=== PATIENT | female | born 1950 | race Caucasian/White ===

== ENCOUNTER 2021-02-13 08:12 | Outpatient (CLI) | payer MEDICARE, SELFPAY | END 2021-02-13 08:13 | disposition home or self-care (01) | LOC: ANHCOVIDVC 08:12 | PROVIDERS: PCP Emergency Medicine | DX: Z23 Encounter for immunization (principal) | CPT/HCPCS: 0001A; 91300 ==

== ENCOUNTER 2021-03-06 08:16 | Outpatient (CLI) | payer MEDICARE, SELFPAY | END 2021-03-06 08:17 | disposition home or self-care (01) | LOC: ANHCOVIDVC 08:17 | PROVIDERS: PCP Emergency Medicine | DX: Z23 Encounter for immunization (principal) | CPT/HCPCS: 0002A; 91300 ==

== ENCOUNTER 2021-05-13 15:15 | Outpatient (CLI) | payer MEDICARE, SELFPAY ==
--- NOTE | ~2021-05-13 | XR_ITS ---
XR chest 2V DATE: 05/13/2021 15:34 INDICATION: Shortness of breath, cough, wheezing. Hypertension. Smoker. TECHNIQUE: PA and lateral views COMPARISON: 12/30/2015 PA and lateral chest FINDINGS: Heart size is normal. Is aortic arch calcification. No hilar or mediastinal enlargement. No pulmonary infiltrate or consolidation, pleural effusion or pulmonary vascular congestion or pneumo thorax. Diffuse osteopenia. IMPRESSION: No active cardiopulmonary disease Reviewed, dictated and finalized at location B.
== END 2021-05-13 15:16 | disposition home or self-care (01) ==
LOC: ANHIMG 15:17
PROVIDERS: PCP Family Medicine; Visit Provider Family Medicine
DX: R06.2 Wheezing (principal)
CPT/HCPCS: 71046

== ENCOUNTER 2021-10-20 11:24 | Observation (INO) | payer MEDICARE, SELFPAY ==
[2021-10-20] VITALS (15 sets, daily range): BP systolic 128–167; BP diastolic 51–100; PULSE 84–117; RESP 16–27; TEMP 36.1–36.8; O2SAT 96–98; BMI 35.8
--- NOTE | 2021-10-20 | ECHO_ITS ---
Patient Info Name: Annette Merchant Age: 71 years : 1950 Gender: Female Ht: 62 in Wt: 182 lbs BSA: 1.94 m2 HR: 94 bpm BP: 128 / 100 mmHg Heart Rhythm: Sinus Rhythm Technical Quality: Fair Exam Date: 10/20/2021 4:59 PM Exam Location: [facility] Patient Status: Outpatient Admit Date: 10/20/2021 Staff Ordering Physician: Nidia Galvez NP Cms Expert: Emily Delatorre RDCS Attending Provider: Guerda Esteves MD Referring Physician: Leonor BLOOM; Exam Type: CA echo doppler color flow Study Info Indications - sob Complete two-dimensional, color flow and Doppler transthoracic echocardiogram is performed. Summary 1. Complete two-dimensional, color flow and Doppler transthoracic echocardiogram is performed. 2. Normal left ventricular size and thickness with good contractility of all segments and no segmental wall motion abnormalities. Ejection fraction 66%. Grade 2 diastolic dysfunction is present. 3. Left atrial chamber dimension is moderately enlarged. 4. The mitral valve has thickened leaflets and posterior prolapse. There is mild mitral regurgitation present. 5. Mild pulmonary hypertension, estimated pulmonary arterial systolic pressure is 38 mmHg. 6. Normal sinus rhythm. Left Ventricle Left ventricular chamber dimension is normal. Left ventricular systolic function is normal, estimated at 65-70%. There is no increased left ventricular wall thickness. Left ventricular septal wall motion is normal. The left ventricular diastolic function is grade II diastolic dysfunction. Right Ventricle Right ventricular chamber dimension is normal. Right ventricular systolic function is normal. Left Atria Left atrial chamber dimension is moderately enlarged. Right Atria Right atrial chamber dimension is normal. Aortic Valve The aortic valve is trileaflet. There is no aortic valve sclerosis. There is no aortic valve stenosis. There is no aortic valve regurgitation. Pulmonic Valve The pulmonic valve is normal. There is no pulmonic valve stenosis. There is no pulmonic regurgitation. Mitral Valve The mitral valve has thickened leaflets and posterior prolapse. There is mild mitral regurgitation present. There is no mitral valve stenosis. There is mild mitral valve regurgitation. Tricuspid Valve The tricuspid valve leaflets are normal. There is no significant tricuspid valve stenosis. There is trace tricuspid valve regurgitation. Mild pulmonary hypertension, estimated pulmonary arterial systolic pressure is 38 mmHg. Pericardium/Pleural The pericardium appears normal. There is no pericardial effusion. Inferior Vena Cava Normal inferior vena cava with >50% collapse upon inspiration consistent with Empty right atrial pressure, 10 mmHg. Aorta The aortic root size at the sinus of Valsalva is normal. The prox ascending aorta size is not well visualized. The aorta arch size is not well visualized measuring Empty. The abdominal aorta size is not well visualized. Left Ventricular Outflow Tract Name Value Normal LVOT 2D LVOT Diameter 2.0 cm LVOT Doppler LVOT P
--- NOTE | ~2021-10-20 | CT_ITS ---
EXAMINATION: CTA chest PE protocol DATE: 10/20/2021 16:00 INDICATION: Shortness of breath TECHNIQUE: Computed tomography (CT) pulmonary angiogram of the chest was performed with 100 mL Omnipa que-350 intravenous contrast. Additional 3D reconstructions utilizing coronal maximum intensity proje ction (MIP) were performed. Automated exposure control and iterative reconstruction technique were em ployed. The dose-length product was 900.60 mGy-cm. COMPARISON: None FINDINGS: Good contrast opacification of the pulmonary arteries. There is mild streak artifact from dense contr ast in the superior vena cava and right atrium. Moderate scattered respiratory motion artifact. No ev ident pulmonary embolism although sensitivity is significantly decreased in the smaller subsegmental pulmonary arteries. Mild emphysema. A couple small regions of consolidation in the medial aspect of t he posterior segment of the left upper lobe suspicious for pneumonia. Additional more bandlike consol idation at the lingula and would favor atelectasis over pneumonia. No pulmonary edema, pleural effusi on or pneumothorax. Heart size is normal. No pericardial effusion. Atherosclerotic calcification lily g the normal caliber thoracic aorta with no dissection. No pathologically enlarged thoracic lymphaden opathy. Small sliding-type hiatal hernia. Bilateral renal cysts, the largest on the right measuring 2 .8 cm in maximal diameter. IMPRESSION: 1. No pulmonary embolism. Evaluation significantly limited in the smaller subsegmental pulmonary ron devin due to primarily to moderate respiratory motion artifact. 2. Couple small regions of consolidation in the posterior segment of the left upper lobe suspicious f or pneumonia. Recommend 3 month follow-up low-dose noncontrast chest CT to document resolution as dif ferential would include less likely malignancy. 3. Mild emphysema. Reviewed, dictated and finalized at location H. [employer] [employer] IMPRESSION: 1. No pulmonary embolism. Evaluation significantly limited in the smaller subse gmental pulmonary arteries due to primarily to moderate respiratory motion keiry fact. 2. Couple small regions of consolidation in the posterior segment of the left u pper lobe suspicious for pneumonia. Recommend 3 month follow-up low-dose noncon trast chest CT to document resolution as differential would include less likely malignancy. 3. Mild emphysema.
[2021-10-20 12:09] LABS: Basophils Absolute Auto 0.1 K/mm3 (0.0-0.1); Basophils Percent Auto 0.4 % (0.2-1.2); Eosinophils Percent Auto 0.2 % (0-4.4); Hematocrit 24.4 % (37.0-47.0); Hemoglobin 7.3 g/dL (12.0-15.0); Immature Granulocyte Absolute 0.14 K/mm3 (0.00-0.031); Immature Granulocyte Percent A 0.9 % (0-0.5); Lymphocytes Absolute Auto 1.26 K/mm3 (0.9-3.2); Mean Corpuscular HGB Conc 29.9 g/dl (32-36); Mean Corpuscular Hemoglobin 26.7 pg (26-34); Mean Corpuscular Volume 89.4 fl (80-100); Mean Platelet Volume 10.8 fl (7.4-10.4); Monocytes Absolute Auto 0.8 K/mm3 (0.1-0.6); Neutrophils Absolute Auto 13.4 K/mm3 (1.3-6.7); Neutrophils Percent Auto 85.5 % (45.5-73.1); Nucleated Red Blood Cells Perc 0.1 % (0.0-0.2); Platelet Count Result 383 k/mm3 (150-375); Red Blood Count 2.73 M/mm3 (4.2-5.4); Red Cell Distribution Width 15.5 % (11.5-14.5); White Blood Count 15.7 K/mm3 (4.5-10.0)
[2021-10-20 12:17] LABS: INR 0.9; Prothrombin Time 11.9 Seconds (11.1-14.7)
[2021-10-20 12:21] LABS: Alanine Aminotransferase 27 U/L (4-35); Albumin Level 4.1 g/dL (3.5-5.1); Alkaline Phosphatase 65 U/L (38-126); Anion Gap 5 mmol/L (8-16); Aspartate Amino Transferase 24 U/L (14-36); Bilirubin,Total 0.2 mg/dL (0.2-1.3); Blood Urea Nitrogen 21 mg/dL (7-17); Calcium 8.9 mg/dL (8.4-10.2); Carbon Dioxide 26 mmol/L (22-30); Chloride 106 mmol/L (98-107); Estimated CRCL calculation 64 ml/min; Estimated Glomerular Filt Rate > 60; Glucose 206 mg/dL (65-110); Potassium 3.7 mmol/L (3.4-5.0); Sodium 137 mmol/L (137-145)
[2021-10-20 12:22] LABS: Partial Thromboplastin Time 20.1 SECONDS (22.3-36.8)
--- NOTE | 2021-10-20 12:25 | ED.SOB ---
HPI - SOB/Dyspnea General Chief Complaint: Shortness of Breath/Dyspnea Stated Complaint: SOB, Fatigue Time Seen by Provider: 10/20/21 11:58 History of Present Illness HPI Narrative: Patient is a 71-year-old female who presents ER with shortness of breath. Ongoing for weeks. Is being worked up by her PCP Dr. Nichols. Outpatient lab work showed that she was anemic and may require blood transfusion. Patient denies previous history of anemia. She denies any dark black stools or diarrhea. No recent rapid weight loss. She is without any nausea or vomiting. Patient does have history of smoking and has never been diagnosed with COPD though she does have some inhalers at home. She reports when she uses the inhaler she does improve. No new cough but does have a chronic smoker's cough. She has no fevers or chills or sweats. Related Data Home Medications Medication Instructions Recorded Confirmed albuterol sulfate 8.5 puff INHALATION PRN PRN 10/20/21 10/20/21 aspirin [Adult Aspirin] 81 mg PO DAILY 10/20/21 10/20/21 cholecalciferol (vitamin D3) 1,000 mcg PO DAILY 10/20/21 10/20/21 [Vitamin D3] fluticasone propionate [Allergy 1 spray INTRANASAL DAILY 10/20/21 10/20/21 Relief (fluticasone)] lisinopril 20 mg PO DAILY 10/20/21 10/20/21 melatonin 5 mg PO HS PRN 10/20/21 10/20/21 omega-3 fatty acids-fish oil [Fish 300 cap PO DAILY 10/20/21 10/20/21 Oil] simvastatin 20 mg PO DAILY 10/20/21 10/20/21 Allergies Allergy/AdvReac Type Severity Reaction Status Date / Time codeine Allergy Intermediate Swelling Verified 10/20/21 11:43 Review of Systems Review of Systems: All systems reviewed & are unremarkable except as noted in HPI and below Constitutional: Constitutional: Denies chills, Reports fatigue and Denies fever(s) ENT: Denies nasal congestion and Denies sore throat Comments: Occasional tinnitus Cardiovascular: Cardiovascular: Denies chest pain, Denies rapid heart rate and Denies radiating jaw, neck or arm pain Respiratory: Respiratory: Denies chest congestion, Reports cough, Reports dyspnea and Denies wheezing Gastrointestinal: Gastrointestinal: Denies abdominal pain, Denies heartburn, Denies nausea and Denies vomiting PMFSH Past Medical History Medical History (Updated 10/20/21 @ 21:11 by Silver Florez MD) Hyperlipidemia Hypertension Surgical History Surgical History (Updated 10/20/21 @ 12:28 by Silver Florez MD) No pertinent past surgical history Family History Family History Mother Breast cancer Father Cancer Sibling Diabetes mellitus Cancer Hypertension Social History Social History (Updated 10/20/21 @ 20:38 by Nidia Galvez NP) Social History: She smokes 2 packs of cigarettes a day. Lives alone . Jaja Mack daughter is poa. She is a full code. She is . She is retired from being a Cook at [employer] Code status full code Smoking packs per day: 1.5 Smoking cigarettes per day: 30.0 Smoking status: Current every day smoker Tobacco type: cigarettes Alcohol intake: former Substance use: never Spiritual care concerns: No Exam Narrative: GENERAL: Chronically ill-appearing, well-nourished, and in no acute distress. HEAD: Normocephalic, atraumatic. EYES: PERRL and EOMI. CHEST: Expiratory wheezing. No respiratory distress. HEART: Regular rate and rhythm. Normal peripheral pulses. ABDOMEN: Soft, nontender, nondistended. Heme-negative stool on ELENA. EXTREMITIES: Normal range of motion. No edema. SKIN: Warm, dry, no rash. NEURO: Alert and oriented x3. PSYCH: Normal mood and affect. Course Course Emergency Course: Admit to hospitalist service. Will give 1 unit of packed red cells. White count elevated from prednisone use. Vital Signs Vital signs: Vital Signs Temperature 97.4 F L 10/20/21 11:36 Pulse Rate 117 H 10/20/21 11:36 Respiratory Rate 20 10/20/21 11:36 Blood P
[2021-10-20 12:34] LABS: Anisocytosis 1+ (NORMAL); Hypochromasia 1+ (NORMAL); Platelet Estimate Adequate (Adequate)
[2021-10-20] MEDS: IPRATROPIUM BR 0.02% INH SOLN 0.5 MG/2.5 ML VIAL INHALATION (14:16)
[2021-10-20] MEDS: ALBUTEROL SULFATE NEB 2.5 MG/0.5 ML INH 5 MG INHALATION (14:16)
[2021-10-20 14:37] LABS: Iron 23 ug/dL (37-170)
[2021-10-20 14:46] LABS: Percent Iron Saturation 7 % (20-50)
[2021-10-20 15:14] LABS: Ferritin 3.71 ng/mL (11.1-264)
[2021-10-20 15:46] LABS: Folic Acid 10.7 ng/mL (2.76->20)
--- NOTE | 2021-10-20 15:50 | PM.IMHP ---
H&P: HPI History of Present Illness Date/Time: 10/20/21 15:50 this is a 71-year-old female patient who came to the emergency room with shortness of breath. This is ongoing for weeks. She has been seeing her primary care doctor and stated that she has a CT scan and an echo ordered for this next week. The patient had some outpatient lab work performed and it does show anemia. Her primary care doctor sent her to the emergency room for possible blood transfusion. She was found to be anemic due to iron deficiency anemia today. The patient stated that he she takes a vitamin but does not believe it has iron in it. The patient does not have oxygen at home. The patient has been on steroids for possibility of COPD. She does have some inhalers at home. She has been a chronic smoker and has chronic smoker's cough. H&H is 7.3 and 24.4. White count 15.7. However she has been on steroids. Immature reticular fraction was 31.3. Reticular hemoglobin content 20.5. Chest x-ray was read as no acute cardiopulmonary disease. CT read as the following 1. No pulmonary embolism. Evaluation significantly limited in the smaller subsegmental pulmonary arteries due to primarily to moderate respiratory motion artifact. 2. Couple small regions of consolidation in the posterior segment of the left upper lobe suspicious for pneumonia. Recommend 3 month follow-up low-dose noncontrast chest CT to document resolution as differential would include less likely malignancy. 3. Mild emphysema. Her blood sugars 219 and has been on steroids. Iron studies were low so I did start her on some iron. 1 unit packed red blood cells was ordered for the patient. I will start her on community-acquired pneumonia protocol. The patient is being admitted to observation status on the date of service of 10/20/2021. Chief Complaint: Cough and shortness of breath Review of Systems Review of Systems: All systems reviewed & are unremarkable except as noted in HPI and below Constitutional: Constitutional: Reports as per HPI and Reports no additional constitutional complaints Eyes: Eyes: Reports as per HPI and Reports no additional eye complaints ENT: Reports system reviewed and no additional complaints, except as documented and Reports Normal hearing present Cardiovascular: Cardiovascular: Reports no additional cardiovascular complaints Respiratory: Respiratory: Reports no additional respiratory complaints and Reports no additional respiratory complaints Gastrointestinal: Gastrointestinal: Reports as per HPI and Reports no additional gastrointestinal complaints Musculoskeletal: Musculoskeletal: Reports no additional musculoskeletal complaints Integumentary/Breasts: Skin/Breast: Reports system reviewed and no additional complaints, except as docu and Reports as per HPI Neurologic: Reports system reviewed and no additional complaints, except as documented, Reports as per HPI and Reports Normal hearing present Psychiatric: Psychiatric: Reports no additional psychiatric complaints and Reports as per HPI Endocrine: Endocrine: Reports no additional endocrine complaints Hematologic/Lymphatic: Hematologic/Lymphatic: Reports no additional hematologic/lymphatic complaints Allergic/Immunologic: Allergic/Immunologic: Reports no additional allergic/immunologic complaints [facility] Past Medical History Medical History (Updated 10/20/21 @ 20:46 by Nidia Galvez NP) Hyperlipidemia Hypertension Surgical History Surgical History (Updated 10/20/21 @ 12:28 by Silver Florez MD) No pertinent past surgical history Family History Family History Mother Breast cancer Father Cancer Sibling Diabetes mellitus Cancer Hypertension Social History Social History (Updated 10/20/21 @ 20:38 by Nidia Galvez NP) Social History: She smokes 2 packs of cigarettes a day. Lives alone . [place]
[2021-10-20] MEDS: SODIUM CHLORIDE 0.9% IV 250 ML 30 ML IV CONT (16:24)
--- NOTE | 2021-10-20 16:35 | ADMGEN ---
This patient, Annette Merchant, was admitted to Medical Room 340-01. Patient/family oriented to hospital policies and general routines including ID bracelet, bed and alarms, visiting hours, pain management, procedures, bathroom and other care routines, personal items, smoking policy, room service/diet, and visiting hours. Information on how to activate the Rapid Response Team has been discussed. Patient/Family are encouraged to report perceived risks to care and to ask questions if they do not understand what they are told or what they should do.
[2021-10-20 16:41] LABS: Glucose Point of Care 219 mg/dl (65-105)
[2021-10-20] MEDS: LORazepam INJ (*CRX) 2 MG/ML VIAL 0.5 MG IV PUSH (16:51)
[2021-10-20] MEDS: INSULIN ASPART (*BKC) 100 UNITS/ML SUB-Q (16:58)
[2021-10-20 19:42] LABS: Immature Reticulocyte Fraction 31.3 % (3.0-15.9); Reticulocyte Hemoglobin Conten 20.5 pg (28.2-35.7); Reticulocyte Percent 4.11 % (0.7-4.3); Reticulocytes Absolute 0.11 B/L (32.2-175.7)
[2021-10-20] MEDS: lisinopriL 20 MG TABLET PO (21:48)
[2021-10-20] MEDS: ASPIRIN 81 MG CHEWABLE TABLET PO (21:48)
[2021-10-20] MEDS: SIMVASTATIN 20 MG TABLET PO (21:48)
[2021-10-20 21:54] LABS: Glucose Point of Care 205 mg/dl (65-105)
[2021-10-20 22:46] LABS: Hematocrit 25.5 % (37.0-47.0); Hemoglobin 7.8 g/dL (12.0-15.0)
[2021-10-21] MEDS: LORazepam INJ (*CRX) 2 MG/ML VIAL 0.5 MG IV PUSH (02:39)
[2021-10-21 05:23] VITALS: O2SAT 97
[2021-10-21 05:52] VITALS: BP 139/65; PULSE 77; RESP 20; TEMP 35.9; O2SAT 97
[2021-10-21 06:00] LABS: Basophils Absolute Auto 0.1 K/mm3 (0.0-0.1); Basophils Percent Auto 0.4 % (0.2-1.2); Eosinophils Percent Auto 0.3 % (0-4.4); Hematocrit 28.7 % (37.0-47.0); Hemoglobin 8.7 g/dL (12.0-15.0); Immature Granulocyte Absolute 0.07 K/mm3 (0.00-0.031); Immature Granulocyte Percent A 0.5 % (0-0.5); Lymphocytes Absolute Auto 3.05 K/mm3 (0.9-3.2); Lymphocytes Percent Auto 21.8 % (18.3-44.2); Mean Corpuscular HGB Conc 30.3 g/dl (32-36); Mean Corpuscular Hemoglobin 26.8 pg (26-34); Mean Corpuscular Volume 88.3 fl (80-100); Mean Platelet Volume 10.8 fl (7.4-10.4); Monocytes Percent Auto 7.3 % (2.6-8.5); Neutrophils Absolute Auto 9.7 K/mm3 (1.3-6.7); Neutrophils Percent Auto 69.7 % (45.5-73.1); Nucleated Red Blood Cells Perc 0.1 % (0.0-0.2); Platelet Count Result 326 k/mm3 (150-375); Red Blood Count 3.25 M/mm3 (4.2-5.4); Red Cell Distribution Width 15.8 % (11.5-14.5)
[2021-10-21 06:29] LABS: Alanine Aminotransferase 32 U/L (4-35); Albumin Level 4.1 g/dL (3.5-5.1); Alkaline Phosphatase 62 U/L (38-126); Anion Gap 4 mmol/L (8-16); Aspartate Amino Transferase 27 U/L (14-36); Bilirubin,Total 0.4 mg/dL (0.2-1.3); Blood Urea Nitrogen 16 mg/dL (7-17); CRP < 0.5 mg/dL (<1.0); Calcium 9.1 mg/dL (8.4-10.2); Carbon Dioxide 27 mmol/L (22-30); Chloride 106 mmol/L (98-107); Estimated CRCL calculation 67 ml/min; Estimated Glomerular Filt Rate > 60; Glucose 103 mg/dL (65-110); Lactate Dehydrogenase 463 U/L (313-618); Lactic Acid Reflex 1.7 mmol/L (0.7-2.1); Magnesium 2.1 mg/dL (1.6-2.3); Potassium 4.1 mmol/L (3.4-5.0); Sodium 137 mmol/L (137-145)
--- NOTE | 2021-10-21 07:12 | WPDGICN ---
Assessment and Plan Assessment and plan (1) Anemia: Code(s): D64.9 - Anemia, unspecified Status: Acute Assessment and Plan: serum iron and ferritin are low. I suspect her anemia is due to chronic blood loss. I discussed with her EGD and colonoscopy. I explained that this will require bowel prep today I described with for her the procedures, the risks such as bleeding or perforation as well as cardiopulmonary complications. (2) COPD (chronic obstructive pulmonary disease): Code(s): J44.9 - Chronic obstructive pulmonary disease, unspecified Status: Acute Assessment and Plan: Obviously she is more dyspneic due to her anemia. She is still a current smoker. GI Consult Note Consult date/time: 10/21/21 07:12 HPI: Annette Merchant is a 71 year old female Was admitted to the emergency room a after having been sent there by her primary care physician. She has had blood work done yesterday because she has been recently short of breath. She was found to be markedly anemic. Her hemoglobin is 7.3. She states that the she is a chronic smoker but does not believe that she has chronic lung disease. She denies using home oxygen but told me this morning she as she thinks she could use it . She denies using any anti-inflammatory medications such as Aleve or ibuprofen. She apparently has been on steroids. . She denies having blood in her stools. She states her stools have been dark lately. I do not believe that she is chronically on iron. She also mentioned that she had recently had some discomfort on her left side in the upper abdomen when walking around. This has subsided. She recalls that starting after she had some sinus infection recently. Her weight is good. Her appetite has been good. There has been no vomiting or nausea. She received 1 unit of blood last night with her hemoglobin increasing from 7.3-7.8 Review of Systems Review of Systems: All systems reviewed & are unremarkable except as noted in HPI and below PMFSH Past Medical History Medical History Hyperlipidemia Hypertension Surgical History Surgical History No pertinent past surgical history Family History Family History Mother Breast cancer Father Cancer Sibling Diabetes mellitus Cancer Hypertension Social History Social History Social History: She smokes 2 packs of cigarettes a day. Lives alone . Jaja Mack daughter is isaca. She is a full code. She is . 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 Smoking packs per day: 1.5 Smoking cigarettes per day: 30.0 Smoking status: Current every day smoker Tobacco type: cigarettes Alcohol intake: former Substance use: never Spiritual care concerns: No Meds Home Medications and Allergies Home Medications Medication Instructions Recorded Confirmed Type albuterol sulfate 8.5 puff INHALATION PRN PRN 10/20/21 10/20/21 History aspirin [Adult Aspirin] 81 mg PO DAILY 10/20/21 10/20/21 History cholecalciferol (vitamin D3) 1,000 mcg PO DAILY 10/20/21 10/20/21 History [Vitamin D3] fluticasone propionate [Allergy 1 spray INTRANASAL DAILY 10/20/21 10/20/21 History Relief (fluticasone)] lisinopril 20 mg PO DAILY 10/20/21 10/20/21 History melatonin 5 mg PO HS PRN 10/20/21 10/20/21 History omega-3 fatty acids-fish oil [Fish 300 cap PO DAILY 10/20/21 10/20/21 History Oil] simvastatin 20 mg PO DAILY 10/20/21 10/20/21 History Allergies Allergy/AdvReac Type Severity Reaction Status Date / Time codeine Allergy Intermediate Swelling Verified 10/20/21 11:43 Vital Signs Vital Signs - 24 hr 10/20/21 11:36 10/20/21 11:56 10/20/21 11:59 Temperature 36.3 C L Pulse Rate 117 H 104 H 1
[2021-10-21 07:28] LABS: Glucose Point of Care 100 mg/dl (65-105)
[2021-10-21 07:45] LABS: Hemoglobin A1C 5.9 % (<5.7)
[2021-10-21] MEDS: ALBUTEROL SULFATE (*SP) AEROSOL 1 PUFF 2 PUFF INHALATION ×3 (08:05→22:36)
[2021-10-21] MEDS: NICOTINE (*PBKC) 21 MG PATCH 1 PATCH TRANSDERM (08:29)
[2021-10-21] MEDS: OMEGA 3 POLYUNSAT FATTY ACIDS 1 GM CAP PO (08:29)
[2021-10-21] MEDS: FLUTICASONE PROPIONATE 0.05% NA SPR 16 GM BTL (*BKC) 1 SPRAY NASAL (08:29)
[2021-10-21] MEDS: CHOLECALCIFEROL 1,000 UNITS TABLET 1000 UNITS PO (08:29)
[2021-10-21 09:42] LABS: Hematocrit 26.8 % (37.0-47.0); Hemoglobin 8.2 g/dL (12.0-15.0)
[2021-10-21 11:33] LABS: Glucose Point of Care 123 mg/dl (65-105)
--- NOTE | 2021-10-21 11:43 | PM.CNPUL ---
Assessment and Plan Assessment and plan (1) COPD (chronic obstructive pulmonary disease): Qualifiers: COPD type: unspecified COPD Qualified Code(s): J44.9 - Chronic obstructive pulmonary disease, unspecified Code(s): J44.9 - Chronic obstructive pulmonary disease, unspecified Status: Acute Assessment and Plan: This 71-year-old female with a history of smoking for over 50 years, history of obesity, presented with shortness of breath. she was diagnosed with anemia and is currently undergoing workup for anemia cause. Chest CT showed COPD changes and small infiltrate in the left lung. On physical exam there is evidence of distant breath sounds due to emphysema. In view of upper respiratory system symptoms such as runny nose, cough and left lung infiltrate I would screen the patient for COVID 19 infection. I will continue with current antibiotics for community-acquired pneumonia. The patient will need further workup with pulmonary function testing regarding COPD. The case was discussed with the hospitalist. (2) CAP (community acquired pneumonia): Qualifiers: Laterality: unspecified laterality Qualified Code(s): J18.9 - Pneumonia, unspecified organism Code(s): J18.9 - Pneumonia, unspecified organism Status: Acute (3) Anemia: Qualifiers: Anemia type: unspecified type Qualified Code(s): D64.9 - Anemia, unspecified Code(s): D64.9 - Anemia, unspecified Status: Acute History of Present Illness History of Present Illness Consult date: 10/21/21 Chief complaint: anemia/copd exacerbation Narrative: This 71-year-old female was admitted into the hospital yesterday with shortness of breath and anemia. The patient has had shortness of breath on exertion for several weeks. Over the last few days has had a cough and also some runny nose. She had no fever chills hemoptysis night sweats. She was recently evaluated by her primary care provider who diagnosed anemia and the patient was transfused with packed RBCs. She is undergoing workup for anemia. The patient has been a smoker for many years. She has not been treated for lung disease previously. Most recently she received steroids. Chest CT showed COPD changes.No pulmonary embolism. Also there were couple small regions of consolidation in the posterior segment of the left upper lobe suspicious for pneumonia. 3. Mild emphysema. Review of Systems Review of Systems: All systems reviewed & are unremarkable except as noted in HPI and below PMFSH Past Medical History Medical History Hyperlipidemia Hypertension Surgical History Surgical History No pertinent past surgical history Family History Family History Mother Breast cancer Father Cancer Sibling Diabetes mellitus Cancer Hypertension Social History Social History Social History: She smokes 2 packs of cigarettes a day. Lives alone . Jaja Mack daughter is poa. She is a full code. She is . 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 Smoking packs per day: 1.5 Smoking cigarettes per day: 30.0 Smoking status: Current every day smoker Tobacco type: cigarettes Alcohol intake: former Substance use: never Spiritual care concerns: No Meds Home Medications and Allergies Home Medications Medication Instructions Recorded Confirmed Type albuterol sulfate 8.5 puff INHALATION PRN PRN 10/20/21 10/20/21 History aspirin [Adult Aspirin] 81 mg PO DAILY 10/20/21 10/20/21 History cholecalciferol (vitamin D3) 1,000 mcg PO DAILY 10/20/21 10/20/21 History [Vitamin D3] fluticasone propionate [Allergy 1 spray INTRANASAL DAILY 10/20/21 10/20/21 History Relief (fluticasone)] lis
[2021-10-21 12:56] LABS: EDCOVIDSCREEN Negative (Negative)
--- NOTE | 2021-10-21 14:13 | PM.IMPN ---
Progress Note: A&P Assessment and Plan (1) CAP (community acquired pneumonia): Qualifiers: Laterality: unspecified laterality Qualified Code(s): J18.9 - Pneumonia, unspecified organism Code(s): J18.9 - Pneumonia, unspecified organism Status: Acute Assessment and Plan: The patient was treated with community-acquired pneumonia stewardship antibiotics of azithromycin Rocephin. Blood and sputum cultures are pending. Continue with inhalers. This patient was suspected to have COPD. smoking cessation adviced (2) Anemia: Qualifiers: Anemia type: unspecified type Qualified Code(s): D64.9 - Anemia, unspecified Code(s): D64.9 - Anemia, unspecified Status: Acute Assessment and Plan: The patient is going to be given 1 unit packed red blood cells today. EGD and colonoscopy soon (3) Elevated blood sugar: Code(s): R73.9 - Hyperglycemia, unspecified Status: Acute Assessment and Plan: The patient recently was on steroids. Will check her A1c and will do sliding scale insulin with Accu-Cheks AC and HS. (4) Hyperlipidemia: Code(s): E78.5 - Hyperlipidemia, unspecified Status: Chronic Assessment and Plan: Continue with patient's home medication of [place] 3 And simvastatin. (5) Hypertension: Code(s): I10 - Essential (primary) hypertension Status: Chronic Assessment and Plan: Continue with lisinopril. (6) Person under investigation for COVID-19: Code(s): Z20.822 - Contact with and (suspected) exposure to COVID-19 Status: Acute Assessment and Plan: Pt has Covid risk Pt to have Covid test today. Subjective Date/time seen: 10/21/21 14:13 Interval history: 71-year-old female patient who came to the emergency room with shortness of breath. This is ongoing for weeks. She has been seeing her primary care doctor and stated that she has a CT scan and an echo ordered for this next week. Pt admitted for CAP with history of COPD and severe Anemia. Pt seen by GI for EGD and colonscopy Pt seen by pulmonology pt has risk factor for COVID adviced to screen for COVID Review of Systems Review of Systems: All systems reviewed & are unremarkable except as noted in HPI and below Exam Const: General: cooperative and healthy appearing; No in distress Nutritional Appearance: overweight Orientation/consciousness: oriented to person HENMT: Head: normal to inspection Resp: Effort & Inspection: no respiratory distress Auscultation: no rhonchi and wheezes (BL ) Cardio: Rate: regular rate Rhythm: regular rhythm GI: Inspection: normal to inspection GI Palp: No abdominal tenderness, No Guarding due to palpation present (GI) and No Hepatomegaly present Auscultation: normal bowel sounds Neuro: General: oriented to person Objective Data Vital Signs Vital Signs: Vital Signs - 24 hr 10/20/21 15:41 10/20/21 16:11 10/20/21 16:22 Temperature 36.8 C 36.7 C Pulse Rate 89 99 100 Respiratory Rate 16 24 H 24 H Blood Pressure 128/100 H 156/64 H 154/71 H Pulse Oximetry 98 97 96 10/20/21 16:36 10/20/21 17:35 10/20/21 18:35 Temperature 36.6 C 36.1 C L 36.1 C L Pulse Rate 96 105 H 87 Respiratory Rate 22 H 20 24 H Blood Pressure 157/66 H 167/61 H 140/58 L Pulse Oximetry 97 97 97 10/20/21 18:36 10/20/21 19:30 10/20/21 22:00 Temperature 36.1 C L 36.7 C 36.7 C Pulse Rate 87 89 92 Respiratory Rate 24 H 22 H 22 H Blood Pressure 140/58 L 149/59 H 150/62 H Pulse Oximetry 97 97 97 10/21/21 05:23 10/21/21 05:52 Temperature 35.9 C L Pulse Rate 77 Respiratory Rate 20 Blood Pressure 139/65 Pulse Oximetry 97 97 Intake/Output Intake/Output: Intake & Output 10/18/21 10/19/21 10/20/21 10/21/21 23:59 23:59 23:59 23:59 Intake Total 840 1100 Balance 840 1100 Meds/Results Medications: Active Medications Generic Name Dose Route Start Last Admin Trade Name Freq PRN Reason Stop Dose Admi
[2021-10-21 14:26] VITALS: BP 135/72; PULSE 73; RESP 18; TEMP 36; O2SAT 94
--- NOTE | 2021-10-21 16:10 | PM.IMPN ---
Progress Note: A&P Assessment and Plan (1) CAP (community acquired pneumonia): Qualifiers: Laterality: unspecified laterality Qualified Code(s): J18.9 - Pneumonia, unspecified organism Code(s): J18.9 - Pneumonia, unspecified organism Status: Acute Assessment and Plan: The patient was treated with community-acquired pneumonia stewardship antibiotics of azithromycin Rocephin. Blood and sputum cultures are pending. Continue with inhalers. This patient was suspected to have COPD. smoking cessation adviced (2) Anemia: Qualifiers: Anemia type: unspecified type Qualified Code(s): D64.9 - Anemia, unspecified Code(s): D64.9 - Anemia, unspecified Status: Acute Assessment and Plan: The patient is going to be given 1 unit packed red blood cells today. EGD and colonoscopy soon (3) Elevated blood sugar: Code(s): R73.9 - Hyperglycemia, unspecified Status: Acute Assessment and Plan: The patient recently was on steroids. Will check her A1c and will do sliding scale insulin with Accu-Cheks AC and HS. (4) Hyperlipidemia: Code(s): E78.5 - Hyperlipidemia, unspecified Status: Chronic Assessment and Plan: Continue with patient's home medication of [place] 3 And simvastatin. (5) Hypertension: Code(s): I10 - Essential (primary) hypertension Status: Chronic Assessment and Plan: Continue with lisinopril. (6) Person under investigation for COVID-19: Code(s): Z20.822 - Contact with and (suspected) exposure to COVID-19 Status: Acute Assessment and Plan: Pt has Covid risk Pt to have Covid test today. Time Spent With Patient Time with patient: 25 - 35 minutes Subjective Date/time seen: 10/21/21 16:10 Interval history: Date of Service 10/21/21: Review of Systems Review of Systems: All systems reviewed & are unremarkable except as noted in HPI and below Exam Narrative: General: *-year-old * laying flat in bed. Appears comfortable. In no acute distress. Skin: No jaundice or cyanosis. Good skin turgor. Neck: Full range of motion. Supple. Nontender. Respiratory: Lungs are clear to auscultation bilaterally. No bony chest wall tenderness. Cardiovascular: The heart has a regular rate and rhythm without murmur. No carotid bruits. Lower extremities: No lower extremity edema. Distal pulses are easily palpated. No calf tenderness to palpation. Gastrointestinal: The abdomen is soft, nontender and nondistended with active bowel sounds. Psychiatric: Lucid and oriented. Memory intact. Neurologic: No focal deficits. Speech is clear. No facial drooping. Objective Data Vital Signs Vital Signs: Vital Signs - 24 hr 10/20/21 16:11 10/20/21 16:22 10/20/21 16:36 Temperature 98.2 F 98.1 F 97.9 F Pulse Rate 99 100 96 Respiratory Rate 24 H 24 H 22 H Blood Pressure 156/64 H 154/71 H 157/66 H Pulse Oximetry 97 96 97 10/20/21 17:35 10/20/21 18:35 10/20/21 18:36 Temperature 97.0 F L 97.0 F L 97.0 F L Pulse Rate 105 H 87 87 Respiratory Rate 20 24 H 24 H Blood Pressure 167/61 H 140/58 L 140/58 L Pulse Oximetry 97 97 97 10/20/21 19:30 10/20/21 22:00 10/21/21 05:23 Temperature 98.1 F 98.1 F Pulse Rate 89 92 Respiratory Rate 22 H 22 H Blood Pressure 149/59 H 150/62 H Pulse Oximetry 97 97 97 10/21/21 05:52 10/21/21 14:26 Temperature 96.6 F L 96.8 F L Pulse Rate 77 73 Respiratory Rate 20 18 Blood Pressure 139/65 135/72 Pulse Oximetry 97 94 Intake/Output Intake/Output: Intake & Output 10/18/21 10/19/21 10/20/21 10/21/21 23:59 23:59 23:59 23:59 Intake Total 840 1340 Balance 840 1340 Meds/Results Medications: Active Medications Generic Name Dose Route Start Last Admin Trade Name Freq PRN Reason Stop Dose Admin Acetaminophen 650 mg 10/20/21 14:23 Acetaminophen 325 Mg Tablet PO Q4H PRN Mild Pain (1-3) or Fever Albuterol 2 puff 10/21/21 02:00 12
[2021-10-21 16:36] LABS: Glucose Point of Care 135 mg/dl (65-105)
[2021-10-21] MEDS: BISACODYL 5 MG TABLET EC 10 MG PO ×3 (16:53→21:53)
[2021-10-21] MEDS: PEG (High)/E-LYTE SOLN 4,000 ML BTL 4000 ML PO (16:53)
[2021-10-21 17:42] LABS: SARS-CoV-2 RNA PCR Negative (Negative)
[2021-10-21 20:53] LABS: Glucose Point of Care 126 mg/dl (65-105)
[2021-10-21 21:00] VITALS: RESP 18; O2SAT 94
[2021-10-21] MEDS: SIMVASTATIN 20 MG TABLET PO (21:00)
[2021-10-21] MEDS: lisinopriL 20 MG TABLET PO (21:00)
[2021-10-21 22:00] VITALS: BP 124/56; PULSE 75; RESP 20; TEMP 35.8; O2SAT 100
[2021-10-21 22:21] LABS: IFOB Positive Control Positive; Immunochemical Fecal Occult Bl Negative (N)
[2021-10-22] MEDS: ALBUTEROL SULFATE (*SP) AEROSOL 1 PUFF 2 PUFF INHALATION ×2 (03:16→14:20)
[2021-10-22 06:05] VITALS: BP 123/56; PULSE 75; RESP 20; TEMP 36.1; O2SAT 93
[2021-10-22 07:34] LABS: Glucose Point of Care 117 mg/dl (65-105)
[2021-10-22] MEDS: NICOTINE (*PBKC) 21 MG PATCH 1 PATCH TRANSDERM (09:58)
[2021-10-22] MEDS: FLUTICASONE PROPIONATE 0.05% NA SPR 16 GM BTL (*BKC) 1 SPRAY NASAL (09:59)
--- NOTE | 2021-10-22 11:09 | PM.PNPUL ---
Progress Note: A&P Assessment and Plan (1) COPD (chronic obstructive pulmonary disease): Qualifiers: COPD type: unspecified COPD Qualified Code(s): J44.9 - Chronic obstructive pulmonary disease, unspecified Code(s): J44.9 - Chronic obstructive pulmonary disease, unspecified Status: Acute Assessment and Plan: This 71-year-old female with a history of smoking for over 50 years, history of obesity, presented with shortness of breath. she was diagnosed with anemia and is currently undergoing workup for anemia cause. Chest CT showed COPD changes and small infiltrate in the left lung. On physical exam there is evidence of distant breath sounds due to emphysema. testing for COVID-19 infection negative. I will continue with current antibiotics for community-acquired pneumonia. The patient will need further workup with pulmonary function testing regarding COPD. Asked patient to return to pulmonary clinic for further workup. Will sign off, call if any problems arise. (2) CAP (community acquired pneumonia): Qualifiers: Laterality: unspecified laterality Qualified Code(s): J18.9 - Pneumonia, unspecified organism Code(s): J18.9 - Pneumonia, unspecified organism Status: Acute (3) Anemia: Qualifiers: Anemia type: unspecified type Qualified Code(s): D64.9 - Anemia, unspecified Code(s): D64.9 - Anemia, unspecified Status: Acute Subjective Date/time seen: 10/22/21 11:09 patient doing better. Breathing better, no fever. Has no shortness of breath or cough. Complains of some dizziness in the upright position. She is having GI workup for anemia, remains on room air still on antibiotics for lower respiratory tract infection. Also on short-acting bronchodilators p.r.n. for COPD. Review of Systems Review of Systems: All systems reviewed & are unremarkable except as noted in HPI and below Exam Narrative: GENERAL APPEARANCE: Well developed, well nourished, alert and cooperative, and appears to be in no acute distress While breathing ambient air SKIN: Inspection of the skin reveals no rashes, ulcerations or petechiae. HEENT: Sclerae anicteric and conjunctivae pink and moist. Extraocular movements were intact and pupils were equal, round. NECK: Supple. There was no thyroid enlargement, and no tenderness, or masses were felt. LUNGS: Auscultation of the lungs revealed distant breath sounds, no wheezing CARDIAC: There was a regular rate and rhythm without any murmurs, gallops, rubs. ABDOMEN: Soft and nontender with normal bowel sounds. There was no organomegaly. LYMPH NODES: No lymphadenopathy was appreciated in the neck. EXTREMITIES: No cyanosis, clubbing or edema. NEUROLOGIC: Alert and oriented x 3. Normal affect. Objective Data Vital Signs Vital Signs: Vital Signs - 24 hr 10/21/21 14:26 10/21/21 21:00 10/21/21 22:00 Temperature 36.0 C L 35.8 C L Pulse Rate 73 75 Respiratory Rate 18 18 20 Blood Pressure 135/72 124/56 L Pulse Oximetry 94 94 100 10/22/21 06:05 Temperature 36.1 C L Pulse Rate 75 Respiratory Rate 20 Blood Pressure 123/56 L Pulse Oximetry 93 Intake/Output Intake/Output: Intake & Output 10/19/21 10/20/21 10/21/21 10/22/21 23:59 23:59 23:59 23:59 Intake Total 840 2395 4000 Balance 840 2395 4000 Meds/Results Medications: Active Medications Generic Name Dose Route Start Last Admin Trade Name Freq PRN Reason Stop Dose Admin Acetaminophen 650 mg 10/20/21 14:23 Acetaminophen 325 Mg Tablet PO Q4H PRN Mild Pain (1-3) or Fever Albuterol 2 puff 10/21/21 02:00 10/22/21 11:03 Albuterol Sulfate (*Sp) Aerosol 1 Puff INHALATION Not Given Q6HRT MICHELLE Aspirin 81 mg 10/20/21 21:25 10/21/21 20:32 Aspirin 81 Mg Chewable Tablet PO Not Given HS MICHELLE Dextrose 12.5 gm 10/20/21 15:44 Dextrose 50% 25 Gm/50 Ml Syringe IV PUSH PRN PRN Hypoglycemia Protocol Docusate Sodi
[2021-10-22 11:17] VITALS: BP 160/58; PULSE 73; RESP 17; TEMP 37; O2SAT 97
[2021-10-22] MEDS: LACTATED RINGERS 1,000 ML 150 ML IV CONT (11:22)
[2021-10-22 11:24] LABS: Glucose Point of Care 124 mg/dl (65-105)
--- NOTE | 2021-10-22 11:54 | WPDANESEPPF ---
Anes - Initial Pre Proc Eval Procedure: Operation Date: 10/22/21 12:15 Proposed Procedures p Esophagogastroduodenoscopy & Colonoscopy - Justin Shaikh MD Date/Time: 10/22/21 11:54 Surgeon: Eduarda Panda PA-C Pre Op Diagnosis: anemia/copd exacerbation Patient Data Age: 71 Gender: F Height: 1.57 m Weight: 88.8 kg Last Vital Signs Temp 98.6 F 10/22/21 11:17 Pulse 73 10/22/21 11:17 Resp 17 10/22/21 11:17 BP 160/58 H 10/22/21 11:17 Pulse Ox 97 10/22/21 11:17 Allergies Allergy/AdvReac Type Severity Reaction Status Date / Time codeine Allergy Intermediate Swelling Verified 10/22/21 11:15 Home Medications Medication Instructions Recorded Confirmed Type albuterol sulfate 8.5 puff INHALATION PRN PRN 10/20/21 10/20/21 History aspirin [Adult Aspirin] 81 mg PO DAILY 10/20/21 10/20/21 History cholecalciferol (vitamin D3) 1,000 mcg PO DAILY 10/20/21 10/20/21 History [Vitamin D3] fluticasone propionate [Allergy 1 spray INTRANASAL DAILY 10/20/21 10/20/21 History Relief (fluticasone)] lisinopril 20 mg PO DAILY 10/20/21 10/20/21 History melatonin 5 mg PO HS PRN 10/20/21 10/20/21 History omega-3 fatty acids-fish oil [Fish 300 cap PO DAILY 10/20/21 10/20/21 History Oil] simvastatin 20 mg PO DAILY 10/20/21 10/20/21 History Laboratory Tests 10/21/21 10/21/21 10/21/21 11:54 12:04 16:34 POC Capillary Glucose 135 mg/dl H mg/dl (65-105) Stl Occult Blood (IFOB) SARS-CoV-2 RNA (RT-PCR) Negative (Negative) SARS-CoV-2 IgG/IgM Ag?Rapid Negative (Negative) 10/21/21 10/21/21 10/22/21 20:41 21:57 07:32 POC Capillary Glucose 126 mg/dl H mg/dl 117 mg/dl H mg/dl (65-105) (65-105) Stl Occult Blood (IFOB) Negative (N) SARS-CoV-2 RNA (RT-PCR) SARS-CoV-2 IgG/IgM Ag?Rapid 10/22/21 11:21 POC Capillary Glucose 124 mg/dl H mg/dl (65-105) Stl Occult Blood (IFOB) SARS-CoV-2 RNA (RT-PCR) SARS-CoV-2 IgG/IgM Ag?Rapid Patient hx anesthesia problems: none Family hx anesthesia problems: none Results Review: All pre-operative results and documents have been reviewed as part of the pre-operative evaluation. [facility] Past Medical History Medical History Hyperlipidemia Hypertension Surgical History Surgical History No pertinent past surgical history Family History Family History Mother Breast cancer Father Cancer Sibling Diabetes mellitus Cancer Hypertension Social History Social History Social History: She smokes 2 packs of cigarettes a day. Lives alone . Jaja Mack daughter is poa. She is a full code. She is . She is retired from being a [employer] at [employer] Code status full code Smoking packs per day: 1.5 Smoking cigarettes per day: 30.0 Smoking status: Current every day smoker Tobacco type: cigarettes Alcohol intake: former Substance use: never Spiritual care concerns: No Anes - Eval Final PreProcedure Day of Procedure 10/22/21 11:54 Patient weight: obese Heart: regular rate and rhythm Lungs: clear to auscultation Airway: Mallampati scale class II Neurological: alert and oriented Last oral intake: >/= 8 hours ASA classification: IV Emergent: no Anesthetic plan: proceed Anesthesia type and monitoring: general GIVS and standard monitoring Results Review: All pre-operative results and documents have been reviewed as part of the pre-operative evaluation. Informed Consent: The patient's anesthetic plan and its attendant risks and benefits were discussed with the patient/family/POA. Questions were solicited and answers provided to the satisfaction of the patient/family/POA.
[2021-10-22 12:39] VITALS: BP 129/66; PULSE 72; RESP 23; O2SAT 98
--- NOTE | 2021-10-22 12:40 | SUR.OPER ---
EGD START 1218, END 1220 COLONOSCOPY START 1226, END 1237 DR CUMMINGS CALLING TRACY AFTER PROCEDURE WITH UPDATES PER PT REQUEST
[2021-10-22 12:49] VITALS: BP 134/70; PULSE 70; RESP 19; O2SAT 97
[2021-10-22 12:59] VITALS: BP 143/74; PULSE 68; RESP 18; O2SAT 98
[2021-10-22 13:25] VITALS: BP 155/68; PULSE 100; RESP 18; TEMP 36; O2SAT 100
--- NOTE | 2021-10-22 14:39 | PM.IMPN ---
Progress Note: A&P Assessment and Plan (1) CAP (community acquired pneumonia): Qualifiers: Laterality: unspecified laterality Qualified Code(s): J18.9 - Pneumonia, unspecified organism Code(s): J18.9 - Pneumonia, unspecified organism Status: Acute Assessment and Plan: The patient was treated with community-acquired pneumonia stewardship antibiotics of azithromycin Rocephin. Blood and sputum cultures are pending. Continue with inhalers. This patient was suspected to have COPD. smoking cessation adviced (2) Anemia: Qualifiers: Anemia type: unspecified type Qualified Code(s): D64.9 - Anemia, unspecified Code(s): D64.9 - Anemia, unspecified Status: Acute Assessment and Plan: The patient is going to be given 1 unit packed red blood cells today. EGD and colonoscopy soon (3) Elevated blood sugar: Code(s): R73.9 - Hyperglycemia, unspecified Status: Acute Assessment and Plan: The patient recently was on steroids. Will check her A1c and will do sliding scale insulin with Accu-Cheks AC and HS. (4) Hyperlipidemia: Code(s): E78.5 - Hyperlipidemia, unspecified Status: Chronic Assessment and Plan: Continue with patient's home medication of [place] 3 And simvastatin. (5) Hypertension: Code(s): I10 - Essential (primary) hypertension Status: Chronic Assessment and Plan: Continue with lisinopril. (6) Person under investigation for COVID-19: Code(s): Z20.822 - Contact with and (suspected) exposure to COVID-19 Status: Acute Assessment and Plan: Pt has Covid risk Pt to have Covid test today. Time Spent With Patient Time with patient: 25 - 35 minutes Subjective Date/time seen: 10/22/21 14:39 Interval history: * Review of Systems Review of Systems: All systems reviewed & are unremarkable except as noted in HPI and below Exam Narrative: General: *-year-old * laying flat in bed. Appears comfortable. In no acute distress. Skin: No jaundice or cyanosis. Good skin turgor. Neck: Full range of motion. Supple. Nontender. Respiratory: Lungs are clear to auscultation bilaterally. No bony chest wall tenderness. Cardiovascular: The heart has a regular rate and rhythm without murmur. No carotid bruits. Lower extremities: No lower extremity edema. Distal pulses are easily palpated. No calf tenderness to palpation. Gastrointestinal: The abdomen is soft, nontender and nondistended with active bowel sounds. Psychiatric: Lucid and oriented. Memory intact. Neurologic: No focal deficits. Speech is clear. No facial drooping. Objective Data Vital Signs Vital Signs: Vital Signs - 24 hr 10/21/21 21:00 10/21/21 22:00 10/22/21 06:05 Temperature 96.4 F L 96.9 F L Pulse Rate 75 75 Respiratory Rate 18 20 20 Blood Pressure 124/56 L 123/56 L Pulse Oximetry 94 100 93 10/22/21 11:17 10/22/21 12:39 10/22/21 12:49 Temperature 98.6 F Pulse Rate 73 72 70 Respiratory Rate 17 23 H 19 Blood Pressure 160/58 H 129/66 134/70 Pulse Oximetry 97 98 97 10/22/21 12:59 10/22/21 13:25 Temperature 96.8 F L Pulse Rate 68 100 Respiratory Rate 18 18 Blood Pressure 143/74 H 155/68 H Pulse Oximetry 98 100 Intake/Output Intake/Output: Intake & Output 10/19/21 10/20/21 10/21/21 10/22/21 23:59 23:59 23:59 23:59 Intake Total 840 2395 4100 Balance 840 2395 4100 Meds/Results Medications: Active Medications Generic Name Dose Route Start Last Admin Trade Name Freq PRN Reason Stop Dose Admin Acetaminophen 650 mg 10/20/21 14:23 Acetaminophen 325 Mg Tablet PO Q4H PRN Mild Pain (1-3) or Fever Albuterol 2 puff 10/21/21 02:00 10/22/21 14:20 Albuterol Sulfate (*Sp) Aerosol 1 Puff INHALATION 2 puff Q6HRT MICHELLE Administration Aspirin 81 mg 10/20/21 21:25 10/21/21 20:32 Aspirin 81 Mg Chewable Tablet PO Not Given HS MICHELLE Dextrose 12.5 gm 10/20/21 15:44
[2021-10-22 14:52] LABS: Hematocrit 30.2 % (37.0-47.0); Hemoglobin 9.1 g/dL (12.0-15.0); Mean Corpuscular HGB Conc 30.1 g/dl (32-36); Mean Corpuscular Hemoglobin 26.9 pg (26-34); Mean Corpuscular Volume 89.3 fl (80-100); Mean Platelet Volume 10.5 fl (7.4-10.4); Platelet Count Result 363 k/mm3 (150-375); Red Blood Count 3.38 M/mm3 (4.2-5.4); Red Cell Distribution Width 15.9 % (11.5-14.5); White Blood Count 9.3 K/mm3 (4.5-10.0)
[2021-10-22 15:26] LABS: Anion Gap 7 mmol/L (8-16); Blood Urea Nitrogen 9 mg/dL (7-17); Calcium 9.4 mg/dL (8.4-10.2); Carbon Dioxide 30 mmol/L (22-30); Chloride 100 mmol/L (98-107); Estimated CRCL calculation 59 ml/min; Estimated Glomerular Filt Rate > 60; Glucose 150 mg/dL (65-110); Potassium 3.6 mmol/L (3.4-5.0); Sodium 137 mmol/L (137-145)
--- NOTE | 2021-10-22 15:45 | PM.DS ---
DS: Admitting Diagnosis Discharge Date 10/22/21 Admitting Diagnosis SOB DS: Discharge Diagnosis Discharge Diagnosis (1) CAP (community acquired pneumonia): Qualifiers: Laterality: unspecified laterality Qualified Code(s): J18.9 - Pneumonia, unspecified organism Code(s): J18.9 - Pneumonia, unspecified organism Status: Acute Assessment and Plan: Patient is a 71-year-old woman with a history of hypertension, dyslipidemia, COPD, who presented to the emergency room with shortness of breath for the last few weeks. Patient had some outpatient labs done by her primary care doctor which showed she had anemia and her provider center into the emergency room for a possible blood transfusion. Initial vitals show blood pressure elevated at 154/51, tachycardic heart rate 117, afebrile, normal oxygenation on room air. Initial labs showed leukocytosis at 15,700 with elevated neutrophils at 85%, normocytic anemia with a hemoglobin of 7.3, hematocrit 24%, iron labs showed % saturation low at 7, and ferritin low at 3.7 consistent with iron deficiency anemia. LFTs normal. Patient also had low normal vitamin B12, normal folate and TSH. Patient had a negative stool occult blood. CTA was completed in the emergency room showing no pulmonary embolism, with moderate respiratory motion artifact. Couple small regions of consolidation in the posterior segment of the left upper lobe suspicious for pneumonia. Recommend 3 month follow-up low-dose noncontrast chest CT to document resolution as differential would include less likely malignancy. Mild emphysema. Patient was admitted into the hospital with a consult to the GI specialist due to iron deficiency anemia for further workup and evaluation and started on IV antibiotics for community-acquired pneumonia with IV azithromycin and Rocephin. Patient had a COVID swab that was negative. Pulmonology was also involved who agreed with treatment for community-acquired pneumonia and recommends outpatient follow-up for pulmonary function testing after discharge. Patient was seen by the GI specialist and had an EGD which showed severe localized gastritis and GI recommended no NSAIDs on an empty stomach. Colonoscopy completed showed diverticulosis. Patient was given 1 unit of PRBCs with improvement of her hemoglobin to 9.1, hematocrit 30%. She is otherwise feeling much better and feels comfortable with being discharged home. Will continue her on antibiotics for a few more days. Instructed to follow-up with her primary care doctor in 1 week. Follow up with pulmonology and GI for further workup and evaluation. She was started on ferrous sulfate for her iron deficiency anemia and cyanocobalamin 1000 mg daily. Also started on Protonix for her gastritis. Return to ER warnings given. The patient understands and agrees the plan all questions answered. (2) Anemia: Qualifiers: Anemia type: unspecified type Qualified Code(s): D64.9 - Anemia, unspecified Code(s): D64.9 - Anemia, unspecified Status: Acute Assessment and Plan: Iron and vitamin B12 deficiency. Will be replenished and follow-up with PCP. Stable at this time after 1 unit. (3) Elevated blood sugar: Code(s): R73.9 - Hyperglycemia, unspecified Status: Acute Assessment and Plan: Hemoglobin A1c 5.9%. Well controlled. (4) Hyperlipidemia: Code(s): E78.5 - Hyperlipidemia, unspecified Status: Chronic Assessment and Plan: Continue with patient's home medication of [place] 3 And simvastatin. (5) Hypertension: Code(s): I10 - Essential (primary) hypertension Status: Chronic Assessment and Plan: Continue with lisinopril. (6) Person under investigation for COVID-19: Code(s): Z20.822 - Contact with and (suspected) exposure to COVID-19 Status: Acute Assessment and Plan: Was negative for COVID. DS: Summary Hospital Course Hospital Course: Se
== END 2021-10-22 17:36 | disposition home or self-care (01) ==
LOC: ANHED 12:12 → ANH3MED 15:15 → ANH3MEDSUR 10-21 07:41 → ANH3MED 10-21 08:06
PROVIDERS: Internal Medicine Gastroenterology; Nurse Practitioner; Admitting Provider Internal Medicine; Emergency Provider Emergency Medicine; PCP Family Medicine; Visit Provider Physician Assistant
PROC: 0DJ08ZZ Inspection of Upper Intestinal Tract, Via Natural or Artificial Opening Endoscopic (ICD-10-PCS; CPT 43235; principal; 2021-10-22 12:15)
DX: J18.9 Pneumonia, unspecified organism (principal); R06.02 Shortness of breath; J43.9 Emphysema, unspecified; E78.5 Hyperlipidemia, unspecified; I10 Essential (primary) hypertension; D50.9 Iron deficiency anemia, unspecified; F17.210 Nicotine dependence, cigarettes, uncomplicated; R73.9 Hyperglycemia, unspecified; K29.70 Gastritis, unspecified, without bleeding; K44.9 Diaphragmatic hernia without obstruction or gangrene; K57.30 Diverticulosis of large intestine without perforation or abscess without bleeding; D12.8 Benign neoplasm of rectum; Z20.822 Contact with and (suspected) exposure to COVID-19
CPT/HCPCS: 45380; 43239; 36415; 36430; 71275; 80048; 80053; 82274; 82607; 82728; 82746; 82948; 83036; 83540; 83550; 83605; 83615; 83735; 84443; 85014; 85018; 85025; 85027; 85046; 85610; 85730; 86140; 86850; 86900; 86901; 86920; 87081; 87426; 88305; 93306; 94640; 94762; 96361; 96365; 96366; 96367; 96375; 96376; 97161; 97165; 99285; A9270; C9803; G0378; J0456; J0696; J1756; J1815; J2060; J2704; J7050; J7120; P9016; Q9967; U0003; U0005

== ENCOUNTER 2021-12-01 14:51 | Emergency (ER) | payer MEDICARE, SELFPAY ==
[2021-12-01] VITALS (21 sets, daily range): BP systolic 107–180; BP diastolic 57–123; PULSE 72–119; RESP 14–28; TEMP 36.4; O2SAT 91–100
--- NOTE | ~2021-12-01 | XR_ITS ---
EXAMINATION: XR chest 2V EXAM DATE: 12/01/2021 15:20 INDICATION: Pt states SOB has returned from prev dx pneumonia in Oct. TECHNIQUE: Frontal and lateral projections of the chest obtained and reviewed. Comparison is made to prior examination from 05/13/2021. FINDINGS: The lungs are clear. There are no pleural effusions. The cardiomediastinal silhouette is within normal limits. There is no pneumothorax suspected. The lungs are hyperinflated which can be seen with chronic obstructive pulmonary disease (a clinical diagnosis of functional impairment), but is not diagnostic of it. There is aortic arteriosclerosis. IMPRESSION: No acute cardiopulmonary findings. Reviewed, dictated and finalized at location G. DENTIAL SUPPORT SPECIALIST
--- NOTE | 2021-12-01 15:05 | ECG_ITS ---
Measurements Intervals [place] Rate: 98 P: 51 SD: 143 QRS: 69 QRSD: 86 T: 43 QT: 329 QTc: 421 Interpretive Statements SINUS RHYTHM MINIMAL Q WAVES- INFERIOR LEADS BASELINE ARTIFACT- I, III, AVR, AVL, AVF BORDERLINE ECG Electronically Signed On 12-01-2021 15:12:59 [employer] by Zander Gan D.O.
[2021-12-01 15:23] LABS: Basophils Absolute Auto 0.1 K/mm3 (0.0-0.1); Basophils Percent Auto 0.6 % (0.2-1.2); Eosinophils Absolute Auto 0.9 K/mm3 (0-0.3); Eosinophils Percent Auto 8.5 % (0-4.4); Hematocrit 32.1 % (37.0-47.0); Hemoglobin 10.1 g/dL (12.0-15.0); Immature Granulocyte Absolute 0.05 K/mm3 (0.00-0.031); Immature Granulocyte Percent A 0.5 % (0-0.5); Lymphocytes Absolute Auto 2.67 K/mm3 (0.9-3.2); Lymphocytes Percent Auto 26.5 % (18.3-44.2); Mean Corpuscular HGB Conc 31.5 g/dl (32-36); Mean Corpuscular Hemoglobin 30.7 pg (26-34); Mean Corpuscular Volume 97.6 fl (80-100); Mean Platelet Volume 9.9 fl (7.4-10.4); Monocytes Absolute Auto 0.7 K/mm3 (0.1-0.6); Monocytes Percent Auto 7.3 % (2.6-8.5); Neutrophils Absolute Auto 5.7 K/mm3 (1.3-6.7); Neutrophils Percent Auto 56.6 % (45.5-73.1); Platelet Count Result 363 k/mm3 (150-375); Red Blood Count 3.29 M/mm3 (4.2-5.4); Red Cell Distribution Width 18.3 % (11.5-14.5); White Blood Count 10.1 K/mm3 (4.5-10.0)
[2021-12-01 15:36] LABS: Prothrombin Time 12.7 Seconds (11.1-14.7)
[2021-12-01 15:37] LABS: Partial Thromboplastin Time 26.4 SECONDS (22.3-36.8)
[2021-12-01 15:41] LABS: Alanine Aminotransferase 19 U/L (4-35); Albumin Level 4.7 g/dL (3.5-5.1); Alkaline Phosphatase 68 U/L (38-126); Anion Gap 7 mmol/L (8-16); Aspartate Amino Transferase 29 U/L (14-36); Bilirubin,Total 0.4 mg/dL (0.2-1.3); Blood Urea Nitrogen 20 mg/dL (7-17); Calcium 9.5 mg/dL (8.4-10.2); Carbon Dioxide 25 mmol/L (22-30); Chloride 106 mmol/L (98-107); Estimated CRCL calculation 58 ml/min; Estimated Glomerular Filt Rate > 60; Glucose 118 mg/dL (65-110); Potassium 4.2 mmol/L (3.4-5.0); Sodium 138 mmol/L (137-145)
--- NOTE | 2021-12-01 15:43 | ED.SOB ---
HPI - SOB/Dyspnea General Chief Complaint: Shortness of Breath/Dyspnea Stated Complaint: SOB HX ANEMIA Time Seen by Provider: 12/01/21 15:43 Source: patient Mode of arrival: ambulatory Limitations: no limitations History of Present Illness HPI Narrative: The patient is a 71 yo female with a history of COPD, HTN, HLD, presenting for evaluation of dyspnea. Patient reports dyspnea and hoarse voice over past 24 hours. Patient states she has had a cough with mild increase sputum production. She denies fever or chills. Pt denies chest pain. Denies sore throat, but does report rhinorrhea. Pt denies myalgias. Pt had noticed dyspnea with exertion, but states that is currently resolved. She denies palpitations. No leg swelling or calf pain. No history of coagulopathy. No recent immobility. Pt has been using her albuterol inhaler without much improvement. She is not currently on antibiotics or steroids. Patient has follow-up with pulmonology tomorrow. States she is still smoking a pack of cigarettes daily. Related Data Home Medications Medication Instructions Recorded Confirmed Fish Oil 300 cap PO DAILY 10/20/21 10/20/21 albuterol sulfate 8.5 puff INHALATION PRN PRN 10/20/21 10/20/21 aspirin 81 mg PO DAILY 10/20/21 10/20/21 cholecalciferol (vitamin D3) 1,000 mcg PO DAILY 10/20/21 10/20/21 [Vitamin D3] fluticasone propionate [Allergy 1 spray INTRANASAL DAILY 10/20/21 10/20/21 Relief (fluticasone)] lisinopril 20 mg PO DAILY 10/20/21 10/20/21 melatonin 5 mg PO HS PRN 10/20/21 10/20/21 simvastatin 20 mg PO DAILY 10/20/21 10/20/21 Allergies Allergy/AdvReac Type Severity Reaction Status Date / Time codeine Allergy Intermediate Swelling Verified 10/22/21 11:15 Review of Systems Review of Systems: CONSTITUTIONAL: Denies fever, chills, or sweats. EYES: Denies visual changes, redness, or discharge. ENT: Reports rhinorrhea, congestion, denies sore throat CARDIOVASCULAR: Denies chest pain, palpitations, or edema. RESPIRATORY: Reports cough and shortness of breath GASTROINTESTINAL: Denies abdominal pain, nausea, vomiting, or diarrhea. GENITOURINARY: Denies dysuria or hematuria. SKIN: Denies rash or itching. MUSCULOSKELETAL: Denies back pain, joint pain, or myalgia. NEUROLOGIC: Denies headache, numbness, or weakness. [facility] Past Medical History Medical History (Updated 12/01/21 @ 16:51 by Elisa Maxwell MD) Anemia Anemia CAP (community acquired pneumonia) COPD (chronic obstructive pulmonary disease) Elevated blood sugar Hyperlipidemia Hypertension Person under investigation for COVID-19 Vitamin B12 deficiency Surgical History Surgical History No pertinent past surgical history Family History Family History Mother Breast cancer Father Cancer Sibling Diabetes mellitus Cancer Hypertension Social History Social History Social History: She smokes 2 packs of cigarettes a day. Lives alone . Jaja Mack daughter is poa. She is a full code. She is . 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 EYES: 2+ PERRLA and EOMI. ENT: Nares clear, no rhinorrhea or epistaxis. Mucous membranes moist. NECK: Supple. CHEST: No respiratory distress, breathing even and non labored, decreased breath sounds bilateral lower bases, no expiratory wheezing, poor aeration HEART: Regular rate, sinus rhythm ABDOMEN:Non distended, non tender EXTREMITIES: Normal range of motion. No edema. No calf pain, or tenderness bilaterally. SKIN: Warm, dry, n
--- NOTE | 2021-12-01 16:38 | PC.NURSE ---
Called lab and spoke to Jerilyn to add on D-Dimer
[2021-12-01] MEDS: ALBUTEROL SULFATE NEB 2.5 MG/0.5 ML INH 5 MG INHALATION (16:40)
[2021-12-01] MEDS: IPRATROPIUM BR 0.02% INH SOLN 0.5 MG/2.5 ML VIAL INHALATION (16:40)
[2021-12-01] MEDS: methylPREDNISolone SOD SUCC 125 MG VIAL IV PUSH (16:46)
[2021-12-03 10:55] LABS: SARS-CoV-2 RNA PCR Positive
== END 2021-12-01 18:12 | disposition home or self-care (01) ==
PROVIDERS: Family Medicine; Emergency Provider Emergency Medicine; PCP Family Medicine
DX: U07.1 COVID-19 (principal); J44.1 Chronic obstructive pulmonary disease with (acute) exacerbation; I10 Essential (primary) hypertension; E78.5 Hyperlipidemia, unspecified; D64.9 Anemia, unspecified; E53.8 Deficiency of other specified B group vitamins; F17.210 Nicotine dependence, cigarettes, uncomplicated; Z79.82 Long term (current) use of aspirin; Z87.01 Personal history of pneumonia (recurrent); R94.31 Abnormal electrocardiogram [ECG] [EKG]; R06.02 Shortness of breath
CPT/HCPCS: 36415; 71046; 80053; 85025; 85380; 85610; 85730; 86850; 86900; 86901; 93005; 94640; 96365; 96375; 99284; C9803; J0456; J2930; U0003; U0005

== ENCOUNTER 2022-01-07 08:03 | Outpatient (CLI) | payer MEDICARE, SELFPAY ==
[2022-01-07 08:30] VITALS: PULSE 117; O2SAT 95
[2022-01-07 08:40] VITALS: PULSE 120; O2SAT 93
[2022-01-07 08:50] VITALS: PULSE 110; O2SAT 95
--- NOTE | 2022-01-07 10:42 | HOMEO2EVAL ---
Evaluation was performed at [facility] Home Oxygen Evaluation RC: Home Oxygen (O2) Evaluation Start: 01/07/22 10:37 Freq: Status: Active Protocol: RPE Activity Type Activity Date Activity User E-Sign Co-Sign Detail Recorded Client Recorded Date Recorded By Document 01/07/22 08:30 DJO [id number] 01/07/22 10:39 DJO Document 01/07/22 08:40 DJO [id number] 01/07/22 10:40 DJO Document 01/07/22 08:50 DJO [email or web address] 01/07/22 10:41 DJO 01/07/22 01/07/22 01/07/22 08:30 08:40 08:50 Home O2 Evaluation Test Phase Resting Exercise Resting Oxygen Delivery Room Air Room Air Room Air Pulse Oximetry (90-100 %) 95 93 95 Pulse Rate (60-100 beats/min) 117 H 120 H 110 H Activity Tolerance Good Good Good Rating of Perceived Dyspnea (PD) +1 Mild, +1 Mild, +2 Mild, Some Noticeable to Noticeable to Difficulty, the Participant the Participant Noticeable to but Not to an but Not to an the Observer Observer Observer Rate of Perceived Exertion (PE) 6 Very, very 9 Very light light Ambulation Distance (feet) 250 Ambulation Distance (meters) 76.19 Treatment Charges O2 Evaluation - Outpatient
--- NOTE | 2022-01-07 12:28 | P.PCNPFT_ITS ---
PFT Procedure Performed PFT Procedure Performed Spirometry with Pre/Post Bronchodilator Plethysmography (Lung Vol) Diffusing Cap (DLCO) Flow Vol Loop PFT Interpretation Lung volumes were measured with the body plethysmography method. The elevated FRC and RV could be due to air trapping. Spirometry showed diminished expi ratory flow rates and a diminished FEV1 to FVC ratio of 66%, indicative of obstructive airway disease. Following administration of a bronchodilator there was no significant increase in expiratory flow rates. Lung diffusion capacity is severely reduced at 43% predicted. The flow volume loop is consistent with obstructive airway disease. Impression: Moderately severe obstructive airway disease with evidence of air trapping and no response to bronchodilators on this testing. Severely reduced lung diffusion capacity.
== END 2022-01-07 08:04 | disposition home or self-care (01) ==
LOC: ANHPFT 08:05
PROVIDERS: PCP Family Medicine; Visit Provider Internal Medicine Pulmonary Disease
DX: J44.9 Chronic obstructive pulmonary disease, unspecified (principal); R06.00 Dyspnea, unspecified; R94.2 Abnormal results of pulmonary function studies
CPT/HCPCS: 94060; 94618; 94726; 94729

== ENCOUNTER 2022-01-15 08:29 | Outpatient (CLI) | payer MEDICARE, SELFPAY ==
--- NOTE | 2022-01-21 16:48 | WPDSLEEPSTUD ---
Sleep Study Date of Study: 01/15/22 Ordering Provider: Ken Agustin MD Interpreting Physician: Elinor Worrell MD Sleep Study Type: Polysomnogram Height: 1.6 m Weight: 83.007 kg Body Mass Index: 32.4 Neck Circumference (inches): 14.5 Bay: 4 Reason for Sleep Study hypersomnolence, napping frequently Sleep History Annette Merchant is a 71 year old female with COPD, daytime hypersomnolence and snoring. Although her Bay is only 4 her daughter stated that she constantly naps throughout the day. She constantly awakens from sleep feeling short of breath and awakens with heartburn, belching or coughing. She says that she does not snore but her daughter says she does. She always has trouble sleeping with a cold. She has breathing problems at night observed by others. She never sweats excessively at night or notices her heart pounding or beating irregularly at night. She she does not fall asleep involuntarily or while driving. She does not have loss of muscle tone with strong emotion. She does not have daytime difficulties due to excessive sleepiness. She does not feel paralyzed on waking falling asleep and does not have vivid dreamlike scenes upon awakening or falling asleep. She does not feel afraid to go to sleep. She does not have nightmares. She does not remember dreams. She does not have racing thoughts. She constantly feels sad, depressed and anxious. She does not have muscular tension, does not notice parts her body jerking and she does not kick at night. She constantly has crawling and aching feelings in her legs and leg pain during the night. She does not have morning jaw pain. She does not grind her teeth at night, does not have pain during the day or pain at night, does not wake up feeling stiff in the morning with sore achy muscles or pain in the neck and spine. She has headaches and insomnia. Normal bedtime is 9:30 p.m. falling asleep within 30 minutes typically waking 3 times at night to urinate. Sometimes it is difficult for to return to sleep. She takes naps throughout the day. A short nap may be refreshing. She often is not refreshed on waking. She feels better in the morning compared to other times of day. Habits: Tobacco a pack per day. Caffeine 3 cups of coffee a day. No alcohol or recreational drugs. [facility] Past Medical History Medical History Anemia Anemia CAP (community acquired pneumonia) COPD (chronic obstructive pulmonary disease) Elevated blood sugar Hyperlipidemia Hypertension Person under investigation for COVID-19 Vitamin B12 deficiency Surgical History Surgical History No pertinent past surgical history Family History Family History Mother Breast cancer Father Cancer Sibling Diabetes mellitus Cancer Hypertension Social History Social History Social History: She smokes 2 packs of cigarettes a day. Lives alone . Jaja Mack daughter is poa. She is a full code. She is . 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 Smoking packs per day: 1.5 Smoking cigarettes per day: 30.0 Smoking status: Current every day smoker Tobacco type: cigarettes Alcohol intake: former Substance use: never Spiritual care concerns: No Medications Home Medications Medication Instructions Recorded Confirmed Type albuterol sulfate 8.5 puff INHALATION PRN PRN 10/20/21 01/20/22 History aspirin 81 mg PO DAILY 10/20/21 01/20/22 History cholecalciferol (vitamin D3) 1,000 mcg PO DAILY 10/20/21 01/20/22 History [Vitamin D3] lisinopril 20 mg PO DAILY 10/20/21 01/20/22 History melatonin 5 mg PO HS PRN 10/20/21 01/20/22 History simvastatin 20 mg PO DAILY 10/20/21 01/20/22 History ferrous sulfate 324 mg PO BID 3
[2022-01-21 20:26] VITALS: BMI 32.4
== END 2022-01-16 05:31 | disposition home or self-care (01) ==
LOC: ANHCSM 08:29
PROVIDERS: PCP Family Medicine; Visit Provider Internal Medicine Pulmonary Disease
DX: G47.10 Hypersomnia, unspecified (principal); R06.83 Snoring; G25.81 Restless legs syndrome
CPT/HCPCS: 95810

== ENCOUNTER 2022-02-04 14:34 | Outpatient (CLI) | payer MEDICARE, SELFPAY ==
[2022-02-04 14:53] LABS: Basophils Absolute Auto 0.1 K/mm3 (0.0-0.1); Eosinophils Absolute Auto 1.2 K/mm3 (0-0.3); Eosinophils Percent Auto 12.8 % (0-4.4); Hematocrit 47.3 % (37.0-47.0); Hemoglobin 14.8 g/dL (12.0-15.0); Immature Granulocyte Absolute 0.01 K/mm3 (0.00-0.031); Immature Granulocyte Percent A 0.1 % (0-0.5); Immature Reticulocyte Fraction 6.4 % (3.0-15.9); Lymphocytes Absolute Auto 2.06 K/mm3 (0.9-3.2); Lymphocytes Percent Auto 22.1 % (18.3-44.2); Mean Corpuscular HGB Conc 31.3 g/dl (32-36); Mean Corpuscular Hemoglobin 29.8 pg (26-34); Mean Corpuscular Volume 95.4 fl (80-100); Mean Platelet Volume 10.8 fl (7.4-10.4); Monocytes Absolute Auto 0.7 K/mm3 (0.1-0.6); Monocytes Percent Auto 7.1 % (2.6-8.5); Neutrophils Absolute Auto 5.3 K/mm3 (1.3-6.7); Neutrophils Percent Auto 56.9 % (45.5-73.1); Platelet Count Result 277 k/mm3 (150-375); Red Blood Count 4.96 M/mm3 (4.2-5.4); Red Cell Distribution Width 13.7 % (11.5-14.5); Reticulocyte Hemoglobin Conten 34.8 pg (28.2-35.7); Reticulocyte Percent 1.11 % (0.7-4.3); Reticulocytes Absolute 0.06 B/L (32.2-175.7); White Blood Count 9.3 K/mm3 (4.5-10.0)
[2022-02-04 16:13] LABS: Iron 55 ug/dL (37-170)
[2022-02-04 16:25] LABS: Percent Iron Saturation 21 % (20-50)
[2022-02-04 16:28] LABS: Alanine Aminotransferase 23 U/L (4-35); Albumin Level 4.7 g/dL (3.5-5.1); Alkaline Phosphatase 83 U/L (38-126); Anion Gap 10 mmol/L (8-16); Aspartate Amino Transferase 27 U/L (14-36); Bilirubin,Total 0.1 mg/dL (0.2-1.3); Blood Urea Nitrogen 14 mg/dL (7-17); CRP < 0.5 mg/dL (<1.0); Calcium 9.8 mg/dL (8.4-10.2); Carbon Dioxide 25 mmol/L (22-30); Chloride 105 mmol/L (98-107); Estimated Glomerular Filt Rate > 60; Glucose 110 mg/dL (65-110); Lactate Dehydrogenase 385 U/L (313-618); Potassium 3.9 mmol/L (3.4-5.0); Sodium 140 mmol/L (137-145)
[2022-02-04 16:29] LABS: Erythrocyte Sedimentation Rate 53 mm/hr (0-20)
[2022-02-04 17:39] LABS: Folic Acid > 20.0 ng/mL (2.76->20)
== END 2022-02-04 14:35 | disposition home or self-care (01) ==
LOC: ANHLAB 14:35
PROVIDERS: PCP Family Medicine; Visit Provider Internal Medicine Hematology & Oncology
DX: D64.9 Anemia, unspecified (principal)
CPT/HCPCS: 36415; 80053; 82607; 82728; 82746; 83540; 83550; 83615; 85025; 85046; 85652; 86140

== ENCOUNTER 2022-08-07 10:58 | Outpatient (CLI) | payer MEDICARE, SELFPAY ==
[2022-08-07 11:25] LABS: Basophils Absolute Auto 0.1 K/mm3 (0.0-0.1); Basophils Percent Auto 0.8 % (0.2-1.2); Eosinophils Absolute Auto 0.9 K/mm3 (0-0.3); Eosinophils Percent Auto 9.3 % (0-4.4); Hematocrit 45.9 % (37.0-47.0); Hemoglobin 15.3 g/dL (12.0-15.0); Immature Granulocyte Absolute 0.03 K/mm3 (0.00-0.031); Immature Granulocyte Percent A 0.3 % (0-0.5); Lymphocytes Absolute Auto 2.62 K/mm3 (0.9-3.2); Mean Corpuscular HGB Conc 33.3 g/dl (32-36); Mean Corpuscular Hemoglobin 32.1 pg (26-34); Mean Corpuscular Volume 96.4 fl (80-100); Mean Platelet Volume 10.6 fl (7.4-10.4); Monocytes Absolute Auto 0.8 K/mm3 (0.1-0.6); Monocytes Percent Auto 7.7 % (2.6-8.5); Neutrophils Absolute Auto 5.6 K/mm3 (1.3-6.7); Neutrophils Percent Auto 55.9 % (45.5-73.1); Platelet Count Result 258 k/mm3 (150-375); Red Blood Count 4.76 M/mm3 (4.2-5.4); Red Cell Distribution Width 12.7 % (11.5-14.5); White Blood Count 10.1 K/mm3 (4.5-10.0)
[2022-08-07 12:25] LABS: Iron 113 ug/dL (37-170)
[2022-08-07 12:29] LABS: Alanine Aminotransferase 34 U/L (6-35); Albumin Level 4.6 g/dL (3.5-5.1); Alkaline Phosphatase 86 U/L (38-126); Anion Gap 10 mmol/L (8-16); Aspartate Amino Transferase 34 U/L (14-36); Bilirubin,Total 0.4 mg/dL (0.2-1.3); Blood Urea Nitrogen 14 mg/dL (7-17); Calcium 9.6 mg/dL (8.4-10.2); Carbon Dioxide 25 mmol/L (22-30); Chloride 104 mmol/L (98-107); Cholesterol 183 mg/dL (0-200); Estimated Glomerular Filt Rate > 60; Glucose 140 mg/dL (65-110); HDL Direct 36 mg/dL; Potassium 4.2 mmol/L (3.4-5.0); Sodium 139 mmol/L (137-145); Triglycerides 336 mg/dL (<150)
[2022-08-07 12:35] LABS: Percent Iron Saturation 52 % (20-50)
[2022-08-07 12:41] LABS: LDL Cholesterol Direct 102 mg/dL
[2022-08-07 13:30] LABS: Hemoglobin A1C 6.8 % (<5.7)
[2022-08-07 13:40] LABS: Folic Acid > 20.0 ng/mL (2.76->20)
[2022-08-07 13:50] LABS: Vitamin D 25 Hydroxy 40.8 ng/mL
== END 2022-08-07 10:59 | disposition home or self-care (01) ==
LOC: ANHLAB 11:00
PROVIDERS: PCP Family Medicine; Visit Provider Internal Medicine Hematology & Oncology
DX: R73.03 Prediabetes (principal); D50.9 Iron deficiency anemia, unspecified; E78.5 Hyperlipidemia, unspecified; I10 Essential (primary) hypertension; E53.8 Deficiency of other specified B group vitamins; E55.9 Vitamin D deficiency, unspecified
CPT/HCPCS: 36415; 80048; 80061; 80076; 82306; 82607; 82728; 82746; 83036; 83540; 83550; 85025

== ENCOUNTER 2023-02-09 11:11 | Outpatient (CLI) | payer MEDICARE, SELFPAY ==
--- NOTE | ~2023-02-09 | CT_ITS ---
EXAMINATION:CT lung screening DATE: 02/09/2023 12:01 INDICATION: Lung cancer screening. Current smoker with 45 pack year history. TECHNIQUE: Computed tomography (CT) of the chest was performed without intravenous contrast. Automate d exposure control and iterative reconstruction technique were employed. The dose-length product (DLP ) was 234.08 mGy-cm. COMPARISON: Chest CT 10/20/2021 FINDINGS: There is mild emphysema. There is mild atelectasis bilaterally. There is a 13 mm nodule in left upper lobe, improved from 10/20/21. No pleural effusion. The heart size is normal. There are cor onary artery calcifications. No pericardial effusion. The central pulmonary arteries are enlarged, co nsistent with pulmonary arterial hypertension. There is diffuse hepatic steatosis. There is a 3.3 cm cyst in right kidney. There is severe thoracic spondylosis. IMPRESSION: 1. Lung-RADS category 2: Benign appearance or behavior. Continue annual screening with noncontrast lo w-dose chest CT in 12 months. Reviewed, dictated and finalized at location A. IMPRESSION: 1. Lung-RADS category 2: Benign appearance or behavior. Continue annual screeni ng with noncontrast low-dose chest CT in 12 months.
== END 2023-02-09 11:12 | disposition home or self-care (01) ==
PROVIDERS: PCP Family Medicine; Visit Provider Nurse Practitioner Family
DX: Z12.2 Encounter for screening for malignant neoplasm of respiratory organs (principal); F17.210 Nicotine dependence, cigarettes, uncomplicated
CPT/HCPCS: 71271

== ENCOUNTER 2023-03-11 10:13 | Outpatient (CLI) | payer MEDICARE, SELFPAY ==
--- NOTE | 2023-03-11 10:19 | ECHO_ITS ---
Patient Info Name: Annette Merchant Age: 72 years : 1950 Gender: Female Ht: 62 in Wt: 194 lbs BSA: 2.00 m2 HR: 92 bpm BP: 175 / 88 mmHg Heart Rhythm: Sinus Rhythm Technical Quality: Good Exam Date: 03/11/2023 10:44 AM Exam Location: [facility] Patient Status: Outpatient Admit Date: 03/11/2023 Staff Ordering Physician: Jose Conde APRN Tractor Operator Laser Leveling: Brea Cochran RDCS Attending Provider: Jose Conde APRN Referring Physician: Elton DEVRIES; Exam Type: CA echo doppler color flow Study Info Indications R06.09 - Other forms of dyspnea Complete two-dimensional, color flow and Doppler transthoracic echocardiogram is performed. Summary 1. Complete two-dimensional, color flow and Doppler transthoracic echocardiogram is performed. 2. Left ventricular chamber dimension is normal. 3. Left ventricular systolic function is normal, estimated at 60-65%. 4. There is mild concentric increased left ventricular wall thickness. 5. The left ventricular diastolic function is grade II diastolic dysfunction. 6. E/e' 28 is elevated. 7. There is mild to moderate mitral valve regurgitation. 8. There is trace tricuspid valve regurgitation. 9. No pulmonary hypertension, estimated pulmonary arterial systolic pressure is 34 mmHg. Left Ventricle E/e' 28 is elevated. Left ventricular chamber dimension is normal. Left ventricular systolic function is normal, estimated at 60-65%. There is mild concentric increased left ventricular wall thickness. The left ventricular diastolic function is grade II diastolic dysfunction. Right Ventricle Right ventricular systolic function is normal and with normal TAPSE 1.7 cm. Right ventricular chamber dimension is normal. Left Atria Left atrial chamber dimension is normal. Right Atria Right atrial chamber dimension is normal. Aortic Valve The aortic valve is trileaflet. There is no aortic valve stenosis. There is no aortic valve regurgitation. Pulmonic Valve There is no pulmonic regurgitation. Mitral Valve There is no mitral valve stenosis. There is mild to moderate mitral valve regurgitation. Tricuspid Valve There is trace tricuspid valve regurgitation. No pulmonary hypertension, estimated pulmonary arterial systolic pressure is 34 mmHg. Pericardium/Pleural There is no pericardial effusion. Inferior Vena Cava Normal inferior vena cava with >50% collapse upon inspiration consistent with normal right atrial pressure, 5 mmHg. Aorta The aortic root size at the sinus of Valsalva is normal. Left Ventricular Outflow Tract Name Value Normal LVOT 2D LVOT Diameter 2.2 cm LVOT Doppler LVOT Peak Gradient 5 mmHg LVOT Mean Gradient 3 mmHg LVOT VTI 26 cm LVOT VTI/AV VTI Ratio 0.6 LVOT Stroke Volume 96 ml LVOT CO 8.4 l/min LVOT CI 4.2 l/min/m2 Pulmonic Valve Name Value Normal
== END 2023-03-11 10:14 | disposition home or self-care (01) ==
PROVIDERS: PCP Family Medicine; Visit Provider Nurse Practitioner Family
DX: R06.09 Other forms of dyspnea (principal); I27.20 Pulmonary hypertension, unspecified
CPT/HCPCS: 93306

== ENCOUNTER 2023-04-12 07:30 | Outpatient (CLI) | payer MEDICARE, SELFPAY ==
[2023-04-12 08:46] LABS: Alanine Aminotransferase 31 U/L (6-35); Albumin Level 4.5 g/dL (3.5-5.1); Alkaline Phosphatase 79 U/L (38-126); Anion Gap 6 mmol/L (8-16); Aspartate Amino Transferase 31 U/L (14-36); Bilirubin,Total 0.6 mg/dL (0.2-1.3); Blood Urea Nitrogen 25 mg/dL (7-17); Calcium 9.1 mg/dL (8.4-10.2); Carbon Dioxide 29 mmol/L (22-30); Chloride 104 mmol/L (98-107); Cholesterol 148 mg/dL (0-200); Estimated Glomerular Filt Rate > 60; Glucose 142 mg/dL (65-110); HDL Direct 34 mg/dL; Potassium 4.4 mmol/L (3.4-5.0); Sodium 139 mmol/L (137-145); Triglycerides 194 mg/dL (<150)
[2023-04-12 09:47] LABS: LDL Cholesterol Direct 82 mg/dL
== END 2023-04-12 07:31 | disposition home or self-care (01) ==
LOC: ANHLAB 07:32
PROVIDERS: PCP Family Medicine; Visit Provider Internal Medicine Cardiovascular Disease
DX: E78.5 Hyperlipidemia, unspecified (principal)
CPT/HCPCS: 36415; 80053; 80061

== ENCOUNTER 2023-06-04 08:41 | Outpatient (CLI) | payer MEDICARE, SELFPAY ==
--- NOTE | ~2023-06-04 | US_ITS ---
EXAMINATION: US venous doppler [facility] DATE: 06/04/2023 09:09 INDICATION: Lower limb edema. TECHNIQUE: Grayscale ultrasound images without and with compression and Doppler ultrasound images of the bilateral lower extremity veins were obtained. COMPARISON: None. FINDINGS: The visualized portions of right common femoral vein, profunda (deep) femoral vein, femoral vein, pop liteal vein, peroneal veins, posterior tibial veins, and greater saphenous vein outflow are patent. The visualized portions of left common femoral vein, profunda femoral vein, femoral vein, popliteal v ein, peroneal veins, posterior tibial veins, and greater saphenous vein outflow are patent. IMPRESSION: 1. No deep venous thrombosis. Reviewed, dictated and finalized at location B.
[2023-06-04 10:47] LABS: Basophils Absolute Auto 0.1 K/mm3 (0.0-0.1); Basophils Percent Auto 0.8 % (0.2-1.2); Eosinophils Absolute Auto 0.7 K/mm3 (0-0.3); Hematocrit 42.8 % (37.0-47.0); Immature Granulocyte Absolute 0.04 K/mm3 (0.00-0.031); Immature Granulocyte Percent A 0.4 % (0-0.5); Lymphocytes Percent Auto 19.9 % (18.3-44.2); Mean Corpuscular HGB Conc 32.7 g/dl (32-36); Mean Corpuscular Hemoglobin 31.5 pg (26-34); Mean Corpuscular Volume 96.2 fl (80-100); Mean Platelet Volume 10.6 fl (7.4-10.4); Monocytes Absolute Auto 0.7 K/mm3 (0.1-0.6); Monocytes Percent Auto 6.9 % (2.6-8.5); Neutrophils Absolute Auto 6.6 K/mm3 (1.3-6.7); Platelet Count Result 310 k/mm3 (150-375); Red Blood Count 4.45 M/mm3 (4.2-5.4); Red Cell Distribution Width 13.8 % (11.5-14.5); White Blood Count 10.1 K/mm3 (4.5-10.0)
[2023-06-04 11:00] LABS: Appearance Urine Clear (Clear); Bacteria Urine 1+ /hpf; Bilirubin Urine Negative (Negative); Blood Urine Negative (Negative); Color Urine Yellow (Yellow); Glucose Urine UA Negative (Negative); Ketones Urine Negative (Negative); Leukocyte Esterase Ur 2+ LEU/UL (Negative); Nitrate Urine Negative (Negative); Non Pathogenic Casts 0-2; Protein Urine Negative (Negative); RBC Urine 0-2 /hpf (0-2); Specific Grav Ur 1.008 (1.001-1.035); Squamous Epithelial Cell Urine Occasional /hpf (Few); Urobilinogen Urine 0.2 mg/dL (<2.0); pH Urine 6.5 (5.0-9.0)
[2023-06-04 11:05] LABS: Hemoglobin A1C 6.9 % (<5.7)
[2023-06-04 11:11] LABS: Alanine Aminotransferase 29 U/L (6-35); Albumin Level 4.6 g/dL (3.5-5.1); Alkaline Phosphatase 86 U/L (38-126); Anion Gap 8 mmol/L (8-16); Aspartate Amino Transferase 28 U/L (14-36); Bilirubin,Total 0.5 mg/dL (0.2-1.3); Blood Urea Nitrogen 24 mg/dL (7-17); Calcium 9.2 mg/dL (8.4-10.2); Carbon Dioxide 29 mmol/L (22-30); Chloride 102 mmol/L (98-107); Cholesterol 157 mg/dL (0-200); Estimated Glomerular Filt Rate > 60; Glucose 133 mg/dL (65-110); HDL Direct 35 mg/dL; Iron 84 ug/dL (37-170); Potassium 4.1 mmol/L (3.4-5.0); Sodium 139 mmol/L (137-145); Triglycerides 189 mg/dL (<150)
[2023-06-04 11:15] LABS: Add Urine Microscopic? YES
[2023-06-04 11:23] LABS: LDL Cholesterol Direct 82 mg/dL
[2023-06-04 11:30] LABS: Percent Iron Saturation 35 % (20-50); Vitamin D 25 Hydroxy 43.9 ng/mL
== END 2023-06-04 08:42 | disposition home or self-care (01) ==
PROVIDERS: PCP Family Medicine; Visit Provider Family Medicine
DX: R60.0 Localized edema (principal); M79.605 Pain in left leg; R73.03 Prediabetes; E53.8 Deficiency of other specified B group vitamins; D50.9 Iron deficiency anemia, unspecified; E78.5 Hyperlipidemia, unspecified; E55.9 Vitamin D deficiency, unspecified; R41.0 Disorientation, unspecified
CPT/HCPCS: 36415; 80048; 80061; 80076; 81001; 82306; 82607; 82728; 83036; 83540; 83550; 85025; 87086; 87088; 93970

== ENCOUNTER 2023-11-02 10:57 | Emergency (ER) | payer MEDICARE, SELFPAY ==
[2023-11-02] VITALS (8 sets, daily range): BP systolic 121–127; BP diastolic 53–59; PULSE 79–109; RESP 12–22; TEMP 36.5–37; O2SAT 87–100
--- NOTE | ~2023-11-02 | XR_ITS ---
XR chest 1V portable DATE: 11/02/2023 11:39 INDICATION: Cough, congestion. No fever. Smoker. COPD. TECHNIQUE: Portable AP chest on 11/02/2023 1133 hours COMPARISON: February 09, 2023 CT lung screening 12/01/2021 2 view chest FINDINGS: There is suggestion of mild pulmonary vascular congestion/redistribution which may indicate mild pulmonary venous hypertension. Heart size appears borderline. There is prominent aortic arch ca lcification. Left cardiophrenic fat pad. No pulmonary consolidation is noted. Minimal blunting of the costophrenic angles may indicate slight pleural effusions. Osteopenia. IMPRESSION: Mild congestive changes Reviewed, dictated and finalized at location L. ICAL GARMENT FITTER IMPRESSION: Mild congestive changes
--- NOTE | 2023-11-02 11:03 | ECG_ITS ---
Measurements Intervals [place] Rate: 83 P: 60 TX: 151 QRS: 82 QRSD: 96 T: 52 QT: 364 QTc: 429 Interpretive Statements SINUS RHYTHM LOW QRS VOLTAGE IN PRECORDIAL LEADS MINIMAL Q WAVES- INFERIOR LEADS BASELINE ARTIFACT- I, II, III, AVR, AVL, AVF BORDERLINE ECG COMPARED TO ECG 12/01/2021 15:10:21 NO SIGNIFICANT CHANGES Electronically Signed On 11-02-2023 12:10:07 BRAID MAKER by Zander Gan D.O.
--- NOTE | 2023-11-02 12:00 | ED.SOB ---
HPI - SOB/Dyspnea General Chief Complaint: Shortness of Breath/Dyspnea Stated Complaint: diff breathing Time Seen by Provider: 11/02/23 12:00 History of Present Illness HPI Narrative: patient is a 73-year-old female with history of COPD here with shortness of breath. She states that on new 's Ayde she began having a cough, nasal congestion and a subjective fever. She notes she has had some continued shortness of breath over the last couple of days and this prompted her daughter to bring her into the emergency department for evaluation. She does not use any home oxygen. She was placed on 2 L nasal cannula on arrival to the emergency department. She does note that she uses inhalers, has not been using her rescue inhaler more than usual over the last few days of illness. She denies any associated chest pain, lightheadedness, nausea, diarrhea, abdominal pain. No known sick contacts. She notes that she lives alone. Related Data Home Medications Medication Instructions Recorded Confirmed amlodipine 10 mg tablet mg 11/02/23 aspirin 81 mg capsule mg 11/02/23 budesonide 160 mcg-glycopyr 9 inh inhalation 11/02/23 mcg-formot 4.8 mcg/actuation HFA inhaler (Breztri Aerosphere) cyanocobalamin (vitamin B-12) 500 500 mcg PO DAILY 11/02/23 11/02/23 mcg chewable tablet furosemide 20 mg tablet mg 11/02/23 losartan 100 tablet 11/02/23 mg-hydrochlorothiazide 25 mg tablet multivit with minerals-iron 18 tablet PO 11/02/23 mg-folic ac 400 mcg-vit K 25 mcg tablet (Adults Multivitamin) simvastatin 20 mg tablet mg 11/02/23 Allergies Allergy/AdvReac Type Severity Reaction Status Date / Time codeine Allergy Intermediate Swelling Verified 11/02/23 11:11 Review of Systems Review of Systems: All systems reviewed & are unremarkable except as noted in HPI and below PMFSH Past Medical History Medical History Anemia Anemia CAP (community acquired pneumonia) COPD (chronic obstructive pulmonary disease) Elevated blood sugar Hyperlipidemia Hypertension Person under investigation for COVID-19 Vitamin B12 deficiency Surgical History Surgical History No pertinent past surgical history Family History Family History Mother , cancer Breast cancer Father , cancer Cancer Sibling , 12 siblings, 9 (03/18/2023) Diabetes mellitus Cancer Hypertension Social History Social History Social History: She smokes 2 packs of cigarettes a day. Lives alone . Jaja Mack daughter is chastity. She is a full code. She is . 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 HEAD: Normocephalic, atraumatic. EYES: PERRLA and EOMI. ENT: Nares clear. Mucous membranes moist. NECK: Supple. CHEST: Bilateral wheeze present. No respiratory distress. HEART: Regular rate and rhythm. Normal peripheral pulses. ABDOMEN: Soft, nontender, nondistended. EXTREMITIES: Normal range of motion. No edema. SKIN: Warm, dry, no rash. NEURO: No focal deficits. Alert and oriented x3. PSYCH: Normal mood and affect. Course Course Emergency Course: Chart review performed. Patient here with dyspnea. Triage zeferino
[2023-11-02 12:09] LABS: Basophils Absolute Auto 0.1 K/mm3 (0.0-0.1); Basophils Percent Auto 0.8 % (0.2-1.2); Eosinophils Absolute Auto 0.2 K/mm3 (0-0.3); Eosinophils Percent Auto 2.2 % (0-4.4); Hemoglobin 12.9 g/dL (12.0-15.0); Immature Granulocyte Absolute 0.03 K/mm3 (0.00-0.031); Immature Granulocyte Percent A 0.3 % (0-0.5); Lymphocytes Absolute Auto 1.26 K/mm3 (0.9-3.2); Lymphocytes Percent Auto 14.1 % (18.3-44.2); Mean Corpuscular HGB Conc 32.3 g/dl (32-36); Mean Corpuscular Hemoglobin 30.3 pg (26-34); Mean Corpuscular Volume 93.9 fl (80-100); Mean Platelet Volume 9.3 fl (7.4-10.4); Monocytes Absolute Auto 0.8 K/mm3 (0.1-0.6); Monocytes Percent Auto 9.2 % (2.6-8.5); Neutrophils Absolute Auto 6.6 K/mm3 (1.3-6.7); Neutrophils Percent Auto 73.4 % (45.5-73.1); Platelet Count Result 345 k/mm3 (150-375); Red Blood Count 4.26 M/mm3 (4.2-5.4); Red Cell Distribution Width 13.9 % (11.5-14.5)
[2023-11-02 12:21] LABS: Alanine Aminotransferase 18 U/L (6-35); Albumin Level 4.3 g/dL (3.5-5.1); Alkaline Phosphatase 101 U/L (38-126); Anion Gap 7 mmol/L (8-16); Aspartate Amino Transferase 23 U/L (14-36); Bilirubin,Total 0.4 mg/dL (0.2-1.3); Blood Urea Nitrogen 11 mg/dL (7-17); Calcium 9.6 mg/dL (8.4-10.2); Carbon Dioxide 28 mmol/L (22-30); Chloride 102 mmol/L (98-107); Estimated CRCL calculation 60 ml/min; Estimated Glomerular Filt Rate > 60; Glucose 151 mg/dL (65-110); Potassium 3.9 mmol/L (3.4-5.0); Sodium 137 mmol/L (137-145)
--- NOTE | 2023-11-02 12:42 | PC.NURSE ---
called down to lab at 1210 to add on BNP and trop 1 and called again at this time to remind lab
[2023-11-02 12:45] LABS: Influenza A QL RT-PCR Negative (Negative); Influenza B QL RT-PCR Negative (Negative); RSV RNA, RT-PCR Negative (Negative); SARS-CoV-2 RNA PCR Negative (Negative)
[2023-11-02] MEDS: ALBUTEROL SULFATE (*SP) AEROSOL 1 PUFF 2 PUFF INHALATION (12:49)
[2023-11-02] MEDS: predniSONE 20 MG TABLET 60 MG PO (12:50)
[2023-11-02 13:05] LABS: NT Pro B Type Natriuretic Pept 230 pg/mL (19.9-100); Troponin I < 0.012 ng/mL (0.000-0.034)
[2023-11-02] MEDS: IPRATROPIUM BR 0.02% INH SOLN 0.5 MG/2.5 ML VIAL 1.5 MG INHALATION (13:19)
[2023-11-02] MEDS: ALBUTEROL SULFATE NEB 2.5 MG/3 ML INH 15 MG INHALATION (13:19)
--- NOTE | 2023-11-02 15:11 | ECG_ITS ---
Measurements Intervals [place] Rate: 99 P: 46 TN: 116 QRS: 90 QRSD: 97 T: 52 QT: 346 QTc: 446 Interpretive Statements SINUS RHYTHM WITH SHORT TN INTERVAL LOW QRS VOLTAGE IN PRECORDIAL LEADS MINIMAL Q WAVES- INFERIOR LEADS BASELINE ARTIFACT- I, II, III, AVR, AVL, AVF, V4-V5 BORDERLINE ECG COMPARED TO ECG 11/02/2023 11:42:45 NO SIGNIFICANT CHANGES Electronically Signed On 11-03-2023 9:41:10 GIS ANALYST by Zander Gan D.O.
[2023-11-02 15:35] LABS: Troponin I < 0.012 ng/mL (0.000-0.034)
[2023-11-02] MEDS: AMOXICILLIN/CLAVULANATE K 875-125 MG TAB 1 TABLET PO (16:11)
== END 2023-11-02 16:29 | disposition home or self-care (01) ==
PROVIDERS: Emergency Medicine; Emergency Provider Student in an Organized Health Care Education/Training Program; PCP Family Medicine
DX: J44.1 Chronic obstructive pulmonary disease with (acute) exacerbation (principal); Z20.822 Contact with and (suspected) exposure to COVID-19; E78.5 Hyperlipidemia, unspecified; I10 Essential (primary) hypertension; Z86.2 Personal history of diseases of the blood and blood-forming organs and certain disorders involving the immune mechanism; E53.8 Deficiency of other specified B group vitamins; Z79.82 Long term (current) use of aspirin; F17.210 Nicotine dependence, cigarettes, uncomplicated; R94.31 Abnormal electrocardiogram [ECG] [EKG]
CPT/HCPCS: 36415; 71045; 80053; 83880; 84484; 85025; 87637; 93005; 94640; 94664; 99284; A9270; J7512

== ENCOUNTER 2024-01-13 09:03 | Outpatient (CLI) | payer MEDICARE, SELFPAY ==
--- NOTE | ~2024-01-13 | PE_ITS ---
EXAMINATION: PET skull to mid thigh DATE: 01/13/2024 11:22 INDICATION: Other nonspecific abnormal finding in lung field. TECHNIQUE: Blood glucose level was 162 mg/dL. 9.109 mCi of 18-fluorodeoxyglucose (18-FDG) was adminis tered i.v. Low dose computed tomography (CT) images were acquired from the base of the brain to the p roximal thighs for attenuation correction and anatomic localization. Automated exposure control was e mployed. Dose-length product (DLP) was 996 mGy-cm. Positron emission tomography (PET) images were acq uired in the same distribution. COMPARISON: Chest CT 02/09/2023 FINDINGS: Head/neck: There are no pathologically enlarged lymph nodes. Chest: There is mild emphysema. There is mild atelectasis bilaterally. No pleural effusion. There is mediastinal and left hilar lymphadenopathy with increased activity. Cardiomegaly is noted. There are coronary artery calcifications. No pericardial effusion. There is left axillary lymphadenopathy with increased activity. There is an expansile lytic lesion in left humeral diaphysis with increased activ ity. Abdomen/pelvis/proximal thighs: The liver, gallbladder, spleen, pancreas, and adrenal glands are norm al. There are cysts in the kidneys measuring up to 3.1 cm on the right. There is calcified atheroscle rosis of the aorta and many of the other arteries. There is a calcified fibroid in the uterus. There are no dilated loops of bowel. There is calcified atherosclerosis of the aorta and many of the other arteries. There are no pathologically enlarged lymph nodes. There is no free intraperitoneal fluid. T here is a lytic lesion in left ilium with increased activity. There is a lytic lesion in L3 on the ri ght with increased activity. IMPRESSION: 1. Left axillary, left hilar, and mediastinal lymphadenopathy and multiple bone lesions with increase activity, consistent with metastatic disease. Ultrasound-guided core needle biopsy of a left axillar y lymph node is recommended. Reviewed, dictated and finalized at location A. IMPRESSION: 1. Left axillary, left hilar, and mediastinal lymphadenopathy and multiple bone lesions with increase activity, consistent with metastatic disease. Ultrasound -guided core needle biopsy of a left axillary lymph node is recommended.
[2024-01-13 09:34] LABS: Glucose Point of Care 162 mg/dl (65-105)
== END 2024-01-13 09:04 | disposition home or self-care (01) ==
PROVIDERS: PCP Family Medicine; Visit Provider Nurse Practitioner Family
DX: R91.8 Other nonspecific abnormal finding of lung field (principal)
CPT/HCPCS: 78815; A9552

== ENCOUNTER 2024-01-21 09:58 | Outpatient (CLI) | payer MEDICARE, SELFPAY ==
--- NOTE | ~2024-01-21 | US_ITS ---
EXAMINATION: US_BXSTAXLIMG_US DATE: 01/21/2024 12:30 INDICATION: Enlarged left axillary lymph node TECHNIQUE: The procedure including the risks and benefits was discussed with the patient. Risks discu ssed included bleeding and infection. The patient understood the risks and agreed to proceed. The sk in overlying the right axilla was prepped and draped in usual sterile fashion. Anesthetic was admini stered with 1% lidocaine subcutaneously. An 18 gauge core biopsy needle was advanced under continuou s ultrasound observation to the lesion of interest and a single core needle biopsy specimen was obtai abbie and placed in RPMI media. Following confirmation the lesion was solid it was elected to switch t o a 14-gauge core needle which was advanced under continuous ultrasound observation to the lesion of interest. An additional 4 core biopsy specimens were obtained, 3 placed in RPMI media and one in form hamzah. The needle was removed and the entry site was cleaned and dressed. Post procedure ultrasound demonstrated no hemorrhage. FINDINGS: Ultrasound images demonstrate a 3.4 x 1.2 x 1.9 cm hypoechoic mass at the left axilla. IMPRESSION: 1. Successful Ultrasound-guided biopsy of a 3.4 x 1.2 x 1.9 cm left axillary mass, likely an abnormal enlarged lymph node. Reviewed, dictated and finalized at location A. IMPRESSION: 1. Successful Ultrasound-guided biopsy of a 3.4 x 1.2 x 1.9 cm left axillary ma ss, likely an abnormal enlarged lymph node.
== END 2024-01-21 09:59 | disposition home or self-care (01) ==
PROVIDERS: PCP Family Medicine; Visit Provider Nurse Practitioner Family
DX: R59.1 Generalized enlarged lymph nodes (principal)
CPT/HCPCS: 20999; 76942; 88184; 88305; 88342

== ENCOUNTER 2024-02-01 10:45 | Outpatient (CLI) | payer MEDICARE, SELFPAY ==
[2024-02-01 10:57] LABS: Kit Draw Collected
[2024-02-05 09:15] LABS: CA 19-9 17 U/mL (<34)
== END 2024-02-01 10:46 | disposition home or self-care (01) ==
PROVIDERS: PCP Family Medicine; Visit Provider Internal Medicine Hematology & Oncology
DX: C25.9 Malignant neoplasm of pancreas, unspecified (principal); C18.9 Malignant neoplasm of colon, unspecified
CPT/HCPCS: 36415; 82378; 86301

== ENCOUNTER 2024-02-21 02:25 | Day surgery (SDC) | payer MEDICARE, SELFPAY ==
[2024-02-11 12:35] VITALS: BMI 30.3
--- NOTE | 2024-02-14 12:53 | PC.NURSE ---
Spoke with PATIENT regarding medication ELIQUIS. Pt. verbalizes understanding that the last dose of ELIQUIS is to be taken on 02/18/2024 and the Endoscopist will instruct them when to restart after the procedure.
[2024-02-21 09:52] VITALS: BP 135/62; PULSE 95; RESP 18; TEMP 36.5; O2SAT 98
[2024-02-21] MEDS: LACTATED RINGERS 1,000 ML 150 ML IV CONT (10:05)
--- NOTE | 2024-02-21 10:10 | PM.HPGS ---
History of Present Illness History of Present Illness Consent: Risks, benefits, and alternatives have been discussed and questions answered. Patient agrees to proceed with procedure. 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 Here for egd and colonoscopy, had both 2020 because anemia without major findings. 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 Lives alone . Jaja Mack daughter is poa. She is a full code. She is . She is retired from being a [employer] at [employer] Code status full code Smoking packs per day: 1.5 Smoking cigarettes per day: 30.0 Years smoked: 50 Smoking pack-years: 75.00 Smoking status: Former smoker Tobacco type: cigarettes Alcohol intake: current Alcohol use details: SOCIALLY Substance use: never Substance use type: does not use Living arrangements: with family Occupation/Education: retired Gender identity (if verbalized by the patient): Female Spiritual care concerns: No Meds Home Medications and Allergies Home Medications Medication Instructions Recorded Confirmed Type cyanocobalamin (vitamin B-12) 500 500 mcg PO DAILY 11/02/23 02/21/24 History mcg chewable tablet Spiriva Respimat 2.5 mcg/actuation 2 inh inhalation QAM #4 grams 12/15/23 02/21/24 Rx solution for inhalation (tiotropium bromide) albuterol sulfate 90 mcg/actuation 1 puff inhalation Q6H PRN 12/15/23 02/21/24 History aerosol inhaler Shortness Of Breath Or Wheezing amlodipine 5 mg tablet 5 mg PO DAILY 12/15/23 02/21/24 History apixaban 5 mg tablet 5 mg PO BID 12/15/23 02/21/24 History furosemide 20 mg tablet 40 mg PO DAILY 12/15/23 02/21/24 History loratadine 10 mg tablet (Allergy 10 mg PO DAILY 12/15/23 02/21/24 History Relief (loratadine)) simvastatin 20 mg tablet 20 mg PO DAILY 12/15/23 02/21/24 History Advair HFA 45 mcg-21 mcg/actuation 2 puff inhalation BID #12 grams 01/18/24 02/21/24 Rx aerosol inhaler (fluticasone propion-salmeterol) acetaminophen 500 mg tablet 1,000 mg PO Q6H 02/11/24 02/21/24 History (Tylenol Extra Strength) fluticasone propionate 45 2 inh inhalation BID 02/11/24 02/21/24 History mcg-salmeterol 21 mcg/actuation HFA inhaler (Advair HFA) morphine 15 mg tablet,extended 12 mg PO BID 02/11/24 02/21/24 History release multivitamin with minerals-folic 1 tablet PO DAILY 02/11/24 02/21/24 History acid 12 mcg chewable tablet (Centrum Adults) pantoprazole 40 mg tablet,delayed 40 mg PO BID 02/11/24 02/21/24 History release Allergies Allergy/AdvReac Type Severity Reaction Status Date / Time codeine Allergy Severe Swelling Verified 02/21/24 09:50 latex Allergy Rash Verified 02/21/24 09:50 Vital Signs Vital Signs - 24 hr 02/21/24 09:52 Temperature 97.7 F Pulse Rate 95 Respirator
--- NOTE | 2024-02-21 10:14 | WPDANESEPPF ---
Anes - Initial Pre Proc Eval Procedure: Operation Date: 02/21/24 11:00 Proposed Procedures p Esophagogastroduodenoscopy & Colonoscopy - Rajan Casper MD Date/Time: 02/21/24 10:14 Surgeon: Rajan Casper MD Pre Op Diagnosis: Malignant neoplasm of ill-defined sites within dig Patient Data Age: 73 Gender: F Height: 1.6 m Weight: 75.6 kg Last Vital Signs Temp 97.7 F 02/21/24 09:52 Pulse 95 02/21/24 09:52 Resp 18 02/21/24 09:52 BP 135/62 02/21/24 09:52 Pulse Ox 98 02/21/24 09:52 O2 Del Method Room Air 02/21/24 09:52 Allergies Allergy/AdvReac Type Severity Reaction Status Date / Time codeine Allergy Severe Swelling Verified 02/21/24 09:50 latex Allergy Rash Verified 02/21/24 09:50 Home Medications Medication Instructions Recorded Confirmed Type cyanocobalamin (vitamin B-12) 500 500 mcg PO DAILY 11/02/23 02/21/24 History mcg chewable tablet Spiriva Respimat 2.5 mcg/actuation 2 inh inhalation QAM #4 grams 12/15/23 02/21/24 Rx solution for inhalation (tiotropium bromide) albuterol sulfate 90 mcg/actuation 1 puff inhalation Q6H PRN 12/15/23 02/21/24 History aerosol inhaler Shortness Of Breath Or Wheezing amlodipine 5 mg tablet 5 mg PO DAILY 12/15/23 02/21/24 History apixaban 5 mg tablet 5 mg PO BID 12/15/23 02/21/24 History furosemide 20 mg tablet 40 mg PO DAILY 12/15/23 02/21/24 History loratadine 10 mg tablet (Allergy 10 mg PO DAILY 12/15/23 02/21/24 History Relief (loratadine)) simvastatin 20 mg tablet 20 mg PO DAILY 12/15/23 02/21/24 History Advair HFA 45 mcg-21 mcg/actuation 2 puff inhalation BID #12 grams 01/18/24 02/21/24 Rx aerosol inhaler (fluticasone propion-salmeterol) acetaminophen 500 mg tablet 1,000 mg PO Q6H 02/11/24 02/21/24 History (Tylenol Extra Strength) fluticasone propionate 45 2 inh inhalation BID 02/11/24 02/21/24 History mcg-salmeterol 21 mcg/actuation HFA inhaler (Advair HFA) morphine 15 mg tablet,extended 12 mg PO BID 02/11/24 02/21/24 History release multivitamin with minerals-folic 1 tablet PO DAILY 02/11/24 02/21/24 History acid 12 mcg chewable tablet (Centrum Adults) pantoprazole 40 mg tablet,delayed 40 mg PO BID 02/11/24 02/21/24 History release Patient hx anesthesia problems: none Family hx anesthesia problems: none Results Review: All pre-operative results and documents have been reviewed as part of the pre-operative evaluation. 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 Lives alone . Jaja Mack daughter is pohoracio. She is a full code. She is . 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
--- NOTE | 2024-02-21 10:36 | SUR.OPER ---
EGD START 1018, END 1020 COLONOSCOPY START 1024, END 1037
[2024-02-21 10:41] VITALS: BP 103/27; PULSE 74; RESP 18; O2SAT 100
[2024-02-21 10:51] VITALS: BP 102/41; PULSE 78; RESP 18; O2SAT 100
[2024-02-21 11:01] VITALS: BP 94/40; PULSE 74; RESP 18; O2SAT 100
== END 2024-02-21 11:19 | disposition home or self-care (01) ==
PROVIDERS: PCP Family Medicine; Referring Provider Internal Medicine Hematology & Oncology; Visit Provider Internal Medicine Gastroenterology
PROC: 0DJ08ZZ Inspection of Upper Intestinal Tract, Via Natural or Artificial Opening Endoscopic (ICD-10-PCS; CPT 43235; principal; 2024-02-21 11:00)
DX: C26.9 Malignant neoplasm of ill-defined sites within the digestive system (principal); C77.9 Secondary and unspecified malignant neoplasm of lymph node, unspecified; D12.0 Benign neoplasm of cecum; K64.8 Other hemorrhoids; I10 Essential (primary) hypertension; E78.5 Hyperlipidemia, unspecified; D64.9 Anemia, unspecified; J44.9 Chronic obstructive pulmonary disease, unspecified; E53.8 Deficiency of other specified B group vitamins; F17.210 Nicotine dependence, cigarettes, uncomplicated; Z79.51 Long term (current) use of inhaled steroids; Z79.01 Long term (current) use of anticoagulants; Z80.3 Family history of malignant neoplasm of breast
CPT/HCPCS: 43235; 45380; 88305; J2704; J7120

== ENCOUNTER 2024-03-26 06:51 | Emergency (ER) | payer MEDICARE, SELFPAY ==
--- NOTE | ~2024-03-26 | CT_ITS ---
EXAMINATION: CT brain wo con DATE: 03/26/2024 07:24 INDICATION: Head injury. TECHNIQUE: Computed tomography (CT) of the head was performed without intravenous contrast. The mA wa s adjusted according to patient size. Iterative reconstruction technique was employed. The dose-lengt h product was 605.33 mGy-cm. COMPARISON: Head CT 01/12/2016 FINDINGS: There is no intracranial hemorrhage, acute infarction, or abnormal intracranial mass lesion . There is a small old infarct in left cerebellum. There are scattered areas of low attenuation in th e cerebral white matter, which is within normal limits for the patient's age. The ventricles are norm al in size. There is mild mucosal thickening in the ethmoid sinuses. The orbits are normal. The masto id air cells are normal. IMPRESSION: 1. Small old infarct in left cerebellum. Reviewed, dictated and finalized at location E.
--- NOTE | ~2024-03-26 | CT_ITS ---
EXAMINATION: CT facial & cervical spine wo DATE: 03/26/2024 07:25 INDICATION: Head injury. TECHNIQUE: Computed tomography (CT) of the maxillofacial region and cervical spine was performed with out intravenous contrast. Automated exposure control and iterative reconstruction technique were empl oyed. The dose-length product was 272.31 mGy-cm. COMPARISON: None FINDINGS: MAXILLOFACIAL CT: The orbits are normal. There is mild mucosal thickening in the paranasal sinuses. Bone alignment is n ormal. No fracture. CERVICAL SPINE CT: There is mild emphysema. Bone alignment is normal. Vertebral body heights are normal. There is mildly decreased disc height at C5-C6. The following disc levels are specifically discussed: C2-C3: There is no uncovertebral joint osteoarthritis. There is mild right and moderate left facet faith int osteoarthritis. There is no neural foraminal stenosis. There is no central canal stenosis. C3-C4: There is no uncovertebral joint osteoarthritis. There is severe right and mild left facet join t osteoarthritis. There is no neural foraminal stenosis. There is no central canal stenosis. C4-C5: There is no uncovertebral joint osteoarthritis. There is moderate bilateral facet joint osteoa rthritis. There is no neural foraminal stenosis. There is no central canal stenosis. C5-C6: There is mild right uncovertebral joint osteoarthritis. There is mild right and severe left fa cet joint osteoarthritis. There is no neural foraminal stenosis. There is no central canal stenosis. C6-C7: There is no uncovertebral joint osteoarthritis. There is mild bilateral facet joint osteoarthr itis. There is no neural foraminal stenosis. There is no central canal stenosis. C7-T1: There is no uncovertebral joint osteoarthritis. There is mild bilateral facet joint osteoarthr itis. There is no neural foraminal stenosis. There is no central canal stenosis. IMPRESSION: 1. No fracture. 2. Mild cervical spondylosis. Reviewed, dictated and finalized at location E.
[2024-03-26 06:54] VITALS: BP 128/73; PULSE 113; RESP 20; TEMP 36.6; O2SAT 97
--- NOTE | 2024-03-26 06:55 | ED.FALL ---
HPI - Fall General Chief Complaint: Fall Stated Complaint: fall Time Seen by Provider: 03/26/24 06:55 Source: patient Mode of arrival: ambulatory Limitations: no limitations History of Present Illness HPI Narrative: Patient is a 73-year-old female with a fall prior to arrival. She fell onto her face after tripping on her walker going to the bathroom. No symptoms before or after this fall. No associated chest pain or nausea vomiting or diarrhea. She had a bloody nose and a right wrist skin tear. nosebleed stopped on its own. No further bleeding on the right wrist. She has chronic left shoulder and arm pain after a biopsy. She has a small abrasion on the left elbow. Patient is on hospice for metastatic lung cancer. patient is on blood thinners. MD complaint: fall Onset (ago): hour(s) (1) Fall from: standing Fall witnessed: no Place fall occurred: home Loss of consciousness: none Prolonged down time: no Symptoms prior to fall: none Context: tripped/slipped Location of injury: face Location of injury - extremities: Right: forearm ( Wrist) Severity: mild Severity scale (1-10): 1 Quality: dull Associated symptoms (after fall): denies Related Data Home Medications Medication Instructions Recorded Confirmed cyanocobalamin (vitamin B-12) 500 500 mcg PO DAILY 11/02/23 03/26/24 mcg chewable tablet albuterol sulfate 90 mcg/actuation 1 puff inhalation Q6H PRN 12/15/23 03/26/24 aerosol inhaler Shortness Of Breath Or Wheezing amlodipine 5 mg tablet 10 mg PO DAILY 12/15/23 03/26/24 apixaban 5 mg tablet 5 mg PO BID 12/15/23 03/26/24 furosemide 20 mg tablet 40 mg PO BID 12/15/23 03/26/24 loratadine 10 mg tablet (Allergy 10 mg PO DAILY 12/15/23 03/26/24 Relief (loratadine)) simvastatin 20 mg tablet 20 mg PO HS 12/15/23 03/26/24 acetaminophen 500 mg tablet 1,000 mg PO Q6H 02/11/24 03/26/24 (Tylenol Extra Strength) fluticasone propionate 45 2 inh inhalation BID 02/11/24 03/26/24 mcg-salmeterol 21 mcg/actuation HFA inhaler (Advair HFA) morphine 15 mg tablet,extended 15 mg PO BID 02/11/24 03/26/24 release multivitamin with minerals-folic 1 tablet PO DAILY 02/11/24 03/26/24 acid 12 mcg chewable tablet (Centrum Adults) pantoprazole 40 mg tablet,delayed 40 mg PO BID 02/11/24 03/26/24 release Allergies Allergy/AdvReac Type Severity Reaction Status Date / Time codeine Allergy Severe Swelling Verified 03/26/24 07:18 latex Allergy Rash Verified 03/26/24 07:18 Review of Systems Review of Systems: All systems reviewed & are unremarkable except as noted in HPI and below Constitutional: Constitutional: Reports no additional constitutional complaints Eyes: Eyes: Reports no additional eye complaints ENT: Reports system reviewed and no additional complaints, except as documented Cardiovascular: Cardiovascular: Reports no additional cardiovascular complaints Respiratory: Respiratory: Reports no additional respiratory complaints Gastrointestinal: Gastrointestinal: Reports no additional gastrointestinal complaints Genitourinary: Genitourinary: Reports no additional female genitourinary complaints Musculoskeletal: Musculoskeletal: Reports no additional musculoskeletal complaints Integumentary/Breasts: Skin/Breast: Reports system reviewed and no additional complaints, except as docu Neurologic: Reports system reviewed and no additional complaints, except as documented Psychiatric: Psychiatric: Reports no additional psychiatric complaints Endocrine: Endocrine: Reports no additional endocrine complaints Hematologic/Lymphatic: Hematologic/Lymphatic: Reports no additional hematologic/lymphatic complaints Allergic/Immunologic: Allergic/Immunologic: Reports no additional allergic/immunologic complaints PMFSH Past Medical History Medical History Anemia Anemia CAP (community acquired pneumonia) COPD (chronic obstructive pulmonary disease) Elevated blood
[2024-03-26 07:11] VITALS: BP 128/73; PULSE 112; RESP 20; TEMP 36.4; O2SAT 97
[2024-03-26] MEDS: TETANUS,DIPHTHERIA,AC PERTUSSIS ADULT 0.5 ML (ADACEL) IM (07:36)
[2024-03-26] MEDS: NEOMYCIN/POLYMYXIN/BACITRACIN OINTMENT PACKET 1 PACKET TOPICAL (07:40)
[2024-03-26 08:30] VITALS: BP 144/71; PULSE 111; RESP 20; TEMP 36.9; O2SAT 97
== END 2024-03-26 08:30 | disposition hospice, home (50) ==
LOC: CHSED 07:50
PROVIDERS: Emergency Provider Emergency Medicine
DX: S09.93XA Unspecified injury of face, initial encounter (principal); S09.90XA Unspecified injury of head, initial encounter; W19.XXXA Unspecified fall, initial encounter; C34.90 Malignant neoplasm of unspecified part of unspecified bronchus or lung; C79.9 Secondary malignant neoplasm of unspecified site; Z23 Encounter for immunization; Z79.891 Long term (current) use of opiate analgesic; E78.5 Hyperlipidemia, unspecified; I10 Essential (primary) hypertension; E53.8 Deficiency of other specified B group vitamins; Z87.891 Personal history of nicotine dependence
CPT/HCPCS: 70450; 70486; 72125; 90471; 90715; 99284

== ENCOUNTER 2024-04-08 19:43 | Emergency (ER) | payer OTHER, MEDICARE, SELFPAY ==
[2024-04-08] VITALS (7 sets, daily range): BP systolic 107–131; BP diastolic 51–96; PULSE 97–105; RESP 12–17; TEMP 36.5; O2SAT 96–100
--- NOTE | ~2024-04-08 | XR_ITS ---
XR humerus RT 04/08/2024 20:24 Indication: Arm pain. Procedure: 2 views right humerus Comparison: No prior studies for comparison. Findings: Normal mineralization. No fracture, subluxation or dislocation. No significant soft tissue abnormality. No foreign body. Impression: 1: No acute bone or joint abnormality. Reviewed, dictated and finalized at location B. Impression: 1: No acute bone or joint abnormality.
--- NOTE | ~2024-04-08 | XR_ITS ---
XR humerus LT 04/08/2024 20:24 Indication: Left arm pain. Metastatic disease seen on prior pet/CT examination. Procedure: Single view of the left humerus Comparison: Pet/CT dated 01/13/2024 Findings: There is an expansile lytic lesion of the left humeral diaphysis with associated pathologic fracture, likely metastatic disease. Osteopenia. No other fracture. There is mild angulation. No for eign bodies. There is opacification of the left suprahilar thorax which may represent airspace diseas e or mass. Impression: 1: Expansile lytic defect of the left humeral diaphysis, consistent with metastatic disease. There is an associated pathologic fracture with mild angulation. 2: Opacification of the left upper thorax which may represent focal airspace disease or mass. Reviewed, dictated and finalized at location B. Impression: 1: Expansile lytic defect of the left humeral diaphysis, consistent with metast atic disease. There is an associated pathologic fracture with mild angulation. 2: Opacification of the left upper thorax which may represent focal airspace di sease or mass.
--- NOTE | 2024-04-08 20:35 | ED.GENADULT ---
HPI - General Adult General Chief complaint: Unspecified Stated complaint: [facility] REFUSING TO GIVE Rx MEDS Time Seen by Provider: 04/08/24 19:55 History of Present Illness HPI narrative: [facility] but due to some miscommunication, medications had not been sent to the penitentiary over the weekend and would not be ready until Wednesday, family of the patient were upset about this and pulled her out of the hospice program and also took her out of penitentiary against medical advice. Patient does have a history of metastatic lung cancer that has gone to her left arm and has had a biopsy of it Related Data Home Medications Medication Instructions Recorded Confirmed cyanocobalamin (vitamin B-12) 500 500 mcg PO DAILY 11/02/23 03/26/24 mcg chewable tablet albuterol sulfate 90 mcg/actuation 1 puff inhalation Q6H PRN 12/15/23 03/26/24 aerosol inhaler Shortness Of Breath Or Wheezing amlodipine 5 mg tablet 10 mg PO DAILY 12/15/23 03/26/24 apixaban 5 mg tablet 5 mg PO BID 12/15/23 03/26/24 furosemide 20 mg tablet 40 mg PO BID 12/15/23 03/26/24 loratadine 10 mg tablet (Allergy 10 mg PO DAILY 12/15/23 03/26/24 Relief (loratadine)) simvastatin 20 mg tablet 20 mg PO HS 12/15/23 03/26/24 acetaminophen 500 mg tablet 1,000 mg PO Q6H 02/11/24 03/26/24 (Tylenol Extra Strength) fluticasone propionate 45 2 inh inhalation BID 02/11/24 03/26/24 mcg-salmeterol 21 mcg/actuation HFA inhaler (Advair HFA) morphine 15 mg tablet,extended 15 mg PO BID 02/11/24 03/26/24 release multivitamin with minerals-folic 1 tablet PO DAILY 02/11/24 03/26/24 acid 12 mcg chewable tablet (Centrum Adults) pantoprazole 40 mg tablet,delayed 40 mg PO BID 02/11/24 03/26/24 release Allergies Allergy/AdvReac Type Severity Reaction Status Date / Time codeine Allergy Severe Swelling Verified 03/26/24 07:18 latex Allergy Rash Verified 03/26/24 07:18 Review of Systems Review of Systems: All systems reviewed & are unremarkable except as noted in HPI and below PMFSH Past Medical History Medical History Anemia Anemia CAP (community acquired pneumonia) COPD (chronic obstructive pulmonary disease) Elevated blood sugar Hyperlipidemia Hypertension 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 Lives alone . Jaja Mack daughter is pohoracio. She is a full code. She is . 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 Smoking packs per day: 1.5 Smoking cigarettes per day: 30.0 Years smoked: 50 Smoking pack-years: 75.00 Smoking status: Former smoker Tobacco type: cigarettes Alcohol intake: current Alcohol use details: SOCIALLY Substance use: never Substance use type: does not use Living arrangements: with family Occupation/Education: retired Gender identity (if verbalized by the patient): Female Spiritual care concerns: No Exam Narrative: EXAMINATION OF ORGAN SYSTEMS/BODY AREAS: Constitutional: Vital signs per nursing GENERAL:[No acute distress, non-toxic appearing.] HEAD: Normal with no signs of head trauma. EYES: EOMI, conjunctiva normal ENT: Hearing grossly intact LUNGS: Nonlabored breathing. HEART: [Regular rate and rhythm] ABD: [Soft],
[2024-04-08 20:43] LABS: Basophils Absolute Auto 0.1 K/mm3 (0.0-0.1); Basophils Percent Auto 0.4 % (0.2-1.2); Eosinophils Absolute Auto 0.1 K/mm3 (0-0.3); Eosinophils Percent Auto 0.4 % (0-4.4); Hematocrit 29.9 % (37.0-47.0); Hemoglobin 9.3 g/dL (12.0-15.0); Immature Granulocyte Absolute 0.11 K/mm3 (0.00-0.031); Immature Granulocyte Percent A 0.6 % (0-0.5); Lymphocytes Percent Auto 7.1 % (18.3-44.2); Mean Corpuscular HGB Conc 31.1 g/dl (32-36); Mean Corpuscular Hemoglobin 22.7 pg (26-34); Mean Corpuscular Volume 73.1 fl (80-100); Mean Platelet Volume 9.1 fl (7.4-10.4); Monocytes Absolute Auto 1.3 K/mm3 (0.1-0.6); Monocytes Percent Auto 7.7 % (2.6-8.5); Neutrophils Absolute Auto 14.2 K/mm3 (1.3-6.7); Neutrophils Percent Auto 83.8 % (45.5-73.1); Platelet Count Result 652 k/mm3 (150-375); Red Blood Count 4.09 M/mm3 (4.2-5.4); Red Cell Distribution Width 17.4 % (11.5-14.5); White Blood Count 16.9 K/mm3 (4.5-10.0)
--- NOTE | 2024-04-08 20:43 | PC.NURSE ---
Jaja, pt daughter, called for update. She states [place] [facility] and the retirement have not been helping and they need help. She states she has not had any of her meds and is supposed to be getting morphine and ativan scheduled. She states she does not have updated med list since they took her off most of her meds while at the hospital. Can be reached at [phone].
[2024-04-08 20:52] LABS: Anion Gap 12 mmol/L (4-12); Blood Urea Nitrogen 110 mg/dL (7-17); Calcium 9.2 mg/dL (8.4-10.2); Carbon Dioxide 34 mmol/L (22-30); Chloride 76 mmol/L (98-107); Estimated CRCL calculation 27 ml/min; Estimated Glomerular Filt Rate 32; Glucose 162 mg/dL (65-110); Sodium 122 mmol/L (137-145)
[2024-04-08 21:04] LABS: Anisocytosis 1+; Hypochromasia 1+; Large Platelets Present; Ovalocytes 1+; Platelet Estimate Increased (Adequate); Poikilocytosis 1+; Schistocytes None Seen
[2024-04-08] MEDS: LACTATED RINGERS 1,000 ML 999 ML IV CONT (21:17)
--- NOTE | 2024-04-08 21:32 | PC.NURSE ---
Spoke with Sugey at [facility] who stated that the pt arrived at their facility yesterday and the only medicines she did not receive were the orders for morphine, ativan, and protonix due to hard scripts not being available at the facility. She states the agency night nurse and day shift nurse left without additional information. She also reports the pt signed out AMA with family and is completely d/c from facility.
[2024-04-08] MEDS: ALPRAZolam (*CRX) 0.5 MG TABLET 0.25 MG PO (22:55)
[2024-04-08] MEDS: MORPHINE SULFATE (*CRX) 30 MG TABCR PO (22:56)
--- NOTE | 2024-04-08 23:40 | PM.IMHP ---
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 Lives alone . Jaja Mack daughter is poa. She is a full code. She is . 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 Smoking packs per day: 1.5 Smoking cigarettes per day: 30.0 Years smoked: 50 Smoking pack-years: 75.00 Smoking status: Former smoker Tobacco type: cigarettes Alcohol intake: current Alcohol use details: SOCIALLY Substance use: never Substance use type: does not use Living arrangements: with family Occupation/Education: retired Gender identity (if verbalized by the patient): Female Spiritual care concerns: No Meds Home Medications and Allergies Home Medications Medication Instructions Recorded Confirmed Type cyanocobalamin (vitamin B-12) 500 500 mcg PO DAILY 11/02/23 03/26/24 History mcg chewable tablet Spiriva Respimat 2.5 mcg/actuation 2 inh inhalation QAM #4 grams 12/15/23 03/26/24 Rx solution for inhalation (tiotropium bromide) albuterol sulfate 90 mcg/actuation 1 puff inhalation Q6H PRN 12/15/23 03/26/24 History aerosol inhaler Shortness Of Breath Or Wheezing amlodipine 5 mg tablet 10 mg PO DAILY 12/15/23 03/26/24 History apixaban 5 mg tablet 5 mg PO BID 12/15/23 03/26/24 History furosemide 20 mg tablet 40 mg PO BID 12/15/23 03/26/24 History loratadine 10 mg tablet (Allergy 10 mg PO DAILY 12/15/23 03/26/24 History Relief (loratadine)) simvastatin 20 mg tablet 20 mg PO HS 12/15/23 03/26/24 History acetaminophen 500 mg tablet 1,000 mg PO Q6H 02/11/24 03/26/24 History (Tylenol Extra Strength) fluticasone propionate 45 2 inh inhalation BID 02/11/24 03/26/24 History mcg-salmeterol 21 mcg/actuation HFA inhaler (Advair HFA) morphine 15 mg tablet,extended 15 mg PO BID 02/11/24 03/26/24 History release multivitamin with minerals-folic 1 tablet PO DAILY 02/11/24 03/26/24 History acid 12 mcg chewable tablet (Centrum Adults) pantoprazole 40 mg tablet,delayed 40 mg PO BID 02/11/24 03/26/24 History release Allergies Allergy/AdvReac Type Severity Reaction Status Date / Time codeine Allergy Severe Swelling Verified 03/26/24 07:18 latex Allergy Rash Verified 03/26/24 07:18 Vital Signs Vital Signs - 24 hr 04/08/24 19:46 04/08/24 20:35 04/08/24 19:51 Temperature 36.5 C Pulse Rate 104 H 99 105 H Respiratory Rate 17 12 17 Blood Pressure 131/59 L 125/74 131/59 L Pulse Oximetry 96 99 99 Oxygen Delivery Nasal Cannula Oxygen Flow Rate 2 04/08/24 20:37 04/08/24 21:16 04/08/24 21:32 Temperature Pulse Rate 97 100 98 Respiratory Rate 12 16 16 Blood Pressure 128/51 L Pulse Oximetry 100 99 99 Oxygen Delivery Oxygen Flow Rate 04/08/24 22:31 Temperature Pulse Rate 104 H Respiratory Rate 16 Blood Pressure 107/96 H Pulse Oximetry 98 Oxygen Delivery Oxygen Flow Rate H&P: Results Labs Labs: Short CBC 04/08/24 Range/Units 20:32 WBC 16.9 H (4.5-10.0) K/mm3 Hgb 9.3 L D (12.0-15.0) g/dL Hct
--- NOTE | 2024-04-09 00:53 | PC.NURSE ---
[facility] states they are accepting the patient and talked with daughter who will be coming in within the hour to sign consents for hospice care on the patient's behalf.
[2024-04-09 01:43] VITALS: BP 108/74; PULSE 98; RESP 15; O2SAT 97
== END 2024-04-09 02:12 | disposition hospice, inpatient (51) ==
PROVIDERS: Emergency Provider Emergency Medicine; PCP Internal Medicine
DX: C34.90 Malignant neoplasm of unspecified part of unspecified bronchus or lung (principal); D64.9 Anemia, unspecified; J44.9 Chronic obstructive pulmonary disease, unspecified; I10 Essential (primary) hypertension
CPT/HCPCS: 36415; 73060; 80048; 85025; 96360; 96361; 99285; A9270; J7120

== ENCOUNTER 2024-04-09 01:30 | HOS | payer OTHER, SELFPAY ==
[2024-04-09] VITALS (7 sets, daily range): BP systolic 105; BP diastolic 43; PULSE 89–98; RESP 20; TEMP 36.2; O2SAT 97–99
[2024-04-09] MEDS: LORazepam INJ (*CRX) 2 MG/ML VIAL 1 MG IV PUSH ×2 (03:32→16:26)
[2024-04-09] MEDS: MORPHINE SULFATE (*CRX) 2 MG/ML INJ IV PUSH (03:33)
[2024-04-09] MEDS: MORPHINE SULFATE INJ (*CRX) 50 MG in SODIUM CHLORIDE 0.9% IV 95 ML IV CONT (03:34)
--- NOTE | 2024-04-09 13:14 | PM.IMHP ---
H&P: HPI History of Present Illness Date/Time: 04/09/24 13:14 Chief Complaint: Uncontrolled pain Narrative: This unfortunate 73-year-old female was recently diagnosed with metastatic carcinoma of unknown primary. Outpatient PET/CT in 12/2023 showed: Left axillary, left hilar, and mediastinal lymphadenopathy and multiple bone lesions with increase activity, consistent with metastatic disease. Ultrasound-guided core needle biopsy of a left axillary lymph node is recommended. Bx confirmed metastatic carcinoma. XR of left humerus 04/08 revealed pathological fx. She was discharged [address] to [facility] approximately 1 day prior to admission. Discharged on [facility] hospice. However medications were not transmitted probably due to the [facility] pharmacy. Patient received no medications while at [facility]. She called from the [facility] and had to bring her to [facility] because her pain was unbearable. Pain is deep aching and in the lower back to sacrum but primarily in the left arm and shoulder. Left arm pain worsened with any movement. Records from [facility] have not yet been transmitted to [facility]. However it was known that her discharge medications were morphine sulfate extended release twice daily with p.r.n. morphine as needed. Doses on these were not down however. Once admitted [facility] patient received morphine continuous infusion at 1 mg this controlled her pain and she did not require any the 2 mg as as needed bolus injections. Currently she is still experiencing in the left arm but only [id number] as opposed to severe. 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 Lived alone until recent discharge from [facility] to [facility]. Jaja Mack daughter is POA. She is . 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[employer] [facility] Code status DNR Smoking packs per day: 1.5 Smoking cigarettes per day: 30.0 Years smoked: 50 Smoking pack-years: 75.00 Smoking status: Former smoker Tobacco type: cigarettes Alcohol intake: former Alcohol use details: SOCIALLY Substance use: never Living arrangements: [facility] Occupation/Education: retired Gender identity (if verbalized by the patient): Female Spiritual care concerns: No Meds Home Medications and Allergies Home Medications Medication Instructions Recorded Confirmed Type cyanocobalamin (vitamin B-12) 500 500 mcg PO DAILY 11/02/23 03/26/24 History mcg chewable tablet Spiriva Respimat 2.5 mcg/actuation 2 inh inhalation QAM #4 grams 12/15/23 03/26/24 Rx solution for inhalation (tiotropium bromide) albuterol sulfate 90 mcg/actuation 1 puff inhalation Q6H PRN 12/15/23 03/26/24 History aerosol inhaler Shortness Of Breath Or Wheezing amlodipine 5 mg tablet 10 mg PO DAILY 12/15/23 03/26/24 History apixaban 5 mg tablet 5 mg PO BID 12/15/23 03/26/24 History furosemide 20 mg tablet 40 mg PO BID 12/15/23 03/26/24 History
[2024-04-09] MEDS: KCL 40 MEQ/0.9% SOD CHL 1,000 ML 100 ML IV CONT (14:28)
[2024-04-09] MEDS: ACETAMINOPHEN 500 MG TABLET 1000 MG PO (14:28)
[2024-04-09] MEDS: MORPHINE SULFATE (*CRX) 30 MG TABCR PO (20:50)
[2024-04-10 08:00] VITALS: BP 113/50; PULSE 102; RESP 18; TEMP 36.4; O2SAT 95; O2SAT 96
[2024-04-10] MEDS: MORPHINE SULFATE (*CRX) 30 MG TABCR PO (08:27)
[2024-04-10] MEDS: ACETAMINOPHEN 500 MG TABLET 1000 MG PO ×3 (08:27→17:18)
--- NOTE | 2024-04-10 16:48 | PM.IMPN ---
Progress Note: A&P Assessment and Plan (1) Palliative care encounter: Code(s): Z51.5 - Encounter for palliative care Status: Acute Assessment and Plan: Meet inpatient hospice criteria due to required continuous IV morphine for annual 04/09/2024 transition to p.o. regimen in anticipation of discharge to long-term care facility soon 04/10/2024 increase MS CONTIN to 60 mg q 12 hr and Roxanol to 10 mg q 2 h prn, add senna 17.2 mg daily and methylnaltrexone 12.5 mg x1 for constipation. (2) Pathological fracture, left humerus, sequela: Code(s): M84.422S - Pathological fracture, left humerus, sequela Status: Acute Assessment and Plan: This is the source of most of her current pain Left shoulder immobilizer ordered 04/09/2024 (3) SAV (acute kidney injury): Code(s): N17.9 - Acute kidney failure, unspecified Status: Acute Assessment and Plan: Clinically due to dehydration in part due to decreased oral intake due to uncontrolled pain 04/09/2024 1 L normal saline with 40 mEq potassium ordered IV a mL per hour (4) Hypokalemia: Code(s): E87.6 - Hypokalemia Status: Acute (5) Hyponatremia: Code(s): E87.1 - Hypo-osmolality and hyponatremia Status: Acute (6) 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 No appetite. No n/v. No BM since last week. Review of Systems Review of Systems: ROS unobtainable: Yes unobtainable due to medical condition Exam Narrative: HEENT: PERRL, sclerae nonicteric, pharyngeal mucosa pink and intact NECK: No JVD, adenopathy, or thyromegaly CHEST: Clear to auscultation. Normal effort. HEART: NL S1/S2, regular, no murmur ABDOMEN: BS+, soft, nontender, no mass, no bruits EXTREMITIES: No cyanosis, edema, or clubbing NEUROLOGIC: CN intact and symmetric to inspection. MUSCULOSKELETAL: Tone and strength symmetric. PSYCH: Alert. Oriented to person only. Objective Data Vital Signs Vital Signs: Vital Signs - 24 hr 04/09/24 20:00 04/09/24 21:10 04/09/24 21:31 Temperature 97.1 F L Pulse Rate 89 98 Respiratory Rate 20 20 Blood Pressure 105/43 L Pulse Oximetry 97 99 Oxygen Delivery Nasal Cannula Oxygen Flow Rate 2 04/10/24 08:00 04/10/24 08:00 Temperature 97.6 F Pulse Rate 102 H Respiratory Rate 18 Blood Pressure 113/50 L Pulse Oximetry 95 96 Oxygen Delivery Nasal Cannula Oxygen Flow Rate 2 Intake/Output Intake/Output: Intake & Output 04/07/24 04/08/24 04/09/24 04/10/24 23:59 23:59 23:59 23:59 Intake Total 160 100 Output Total 550 800 Balance -390 -700 Meds/Results Medications: Active Medications Generic Name Dose Route Start Last Admin Trade Name Freq PRN Reason Stop Dose Admin Acetaminophen 1,000 mg 04/09/24 17:00 04/10/24 12:49 Acetaminophen 500 Mg Tablet PO 1,000 mg TID MICHELLE Administration Bisacodyl 10 mg 04/09/24 03:05 Bisacodyl 10 Mg Suppository RECTAL DAILY PRN Constipation Lorazepam 1 mg 04/10/24 15:12 Lorazepam (*Crx) 1 Mg Tablet PO Q6H PRN Anxiety Morphine Sulfate 30 mg 04/09/24 21:00 04/10/24 08:27 Morphine Sulfate (*Crx) 30 Mg Tabcr PO 30 mg Q12HR MICHELLE Administration Morphine Sulfate 5 mg 04/10/24 15:12 Morphine Sulfate Oral Conc Clementine (*Crx) 10 Mg/0.5 Ml Syringe PO Q4H PRN moderate to severe pain Prochlorperazine Maleate 10 mg 04/10/24 15:12 Prochlorperazine Maleate 5 Mg Tablet PO Q6H PRN Nausea And Vomit
[2024-04-10] MEDS: MORPHINE SULFATE ORAL CONC SOL (*CRX) 10 MG/0.5 ML SYRINGE PO (17:16)
[2024-04-10] MEDS: LORazepam (*CRX) 1 MG TABLET PO (17:18)
--- NOTE | 2024-04-10 20:40 | PC.NURSE ---
Pt keeps removing her supplemental oxygen nasal canula and states she does not want to wear it. Pt is currently satting at 92% on room air.
[2024-04-10 20:49] VITALS: BP 138/70; PULSE 105; RESP 18; TEMP 36.4; O2SAT 92
[2024-04-10 21:00] VITALS: O2SAT 92
[2024-04-10] MEDS: SENNOSIDES 8.6 MG TABLET 17.2 MG PO (21:06)
[2024-04-10] MEDS: MORPHINE SULFATE (*CRX) 60 MG TABCR PO (21:06)
--- NOTE | 2024-04-11 07:54 | P.PNIM_ITS ---
Progress Note: A&P Assessment and Plan (1) Palliative care encounter: Code(s): Z51.5 - Encounter for palliative care Status: Acute Assessment and Plan: * Meet inpatient hospice criteria due to required continuous IV morphine for annual * 04/09/2024 transition to p.o. regimen in anticipation of discharge to long- term care facility soon * 04/10/2024 increase MS CONTIN to 60 mg q 12 hr and Roxanol to 10 mg q 2 h prn, add senna 17.2 mg daily and methylnaltrexone 12.5 mg x1 for constipation. * 04/10/2024 trial of sling LUE, continue current regimen, await disposition. (2) Pathological fracture, left humerus, sequela: Code(s): M84.422S - Pathological fracture, left humerus, sequela Status: Acute Assessment and Plan: * This is the source of most of her current pain * Left shoulder immobilizer ordered 04/09/2024 (3) SAV (acute kidney injury): Code(s): N17.9 - Acute kidney failure, unspecified Status: Acute Assessment and Plan: * Clinically due to dehydration in part due to decreased oral intake due to uncontrolled pain * 04/09/2024 1 L normal saline with 40 mEq potassium ordered IV a mL per hour (4) Hypokalemia: Code(s): E87.6 - Hypokalemia Status: Acute (5) Hyponatremia: Code(s): E87.1 - Hypo-osmolality and hyponatremia Status: Acute (6) 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 Did not like to wear immobilizer but will try sling. Taking liquids but very little solid nutrition. Review of Systems Review of Systems: ROS unobtainable: Yes unobtainable due to medical condition Exam Narrative: HEENT: PERRL, sclerae nonicteric, pharyngeal mucosa pink and intact NECK: No JVD, adenopathy, or thyromegaly CHEST: Clear to auscultation. Normal effort. HEART: NL S1/S2, regular, no murmur ABDOMEN: BS+, soft, nontender, no mass, no bruits EXTREMITIES: No cyanosis, edema, or clubbing NEUROLOGIC: CN intact and symmetric to inspection. MUSCULOSKELETAL: Tone and strength symmetric. PSYCH: Alert. Oriented to person only. Objective Data Vital Signs Vital Signs: Vital Signs - 24 hr 04/10/24 08:00 04/10/24 08:00 04/10/24 20:49 Temperature 97.6 F 97.6 F Pulse Rate 102 H 105 H Respiratory Rate 18 18 Blood Pressure 113/50 L 138/70 Pulse Oximetry 95 96 92 Oxygen Delivery Nasal Cannula Oxygen Flow Rate 2 04/10/24 21:00 Temperature Pulse Rate Res
--- NOTE | 2024-04-11 07:54 | PM.IMPN ---
Progress Note: A&P Assessment and Plan (1) Palliative care encounter: Code(s): Z51.5 - Encounter for palliative care Status: Acute Assessment and Plan: Meet inpatient hospice criteria due to required continuous IV morphine for annual 04/09/2024 transition to p.o. regimen in anticipation of discharge to long-term care facility soon 04/10/2024 increase MS CONTIN to 60 mg q 12 hr and Roxanol to 10 mg q 2 h prn, add senna 17.2 mg daily and methylnaltrexone 12.5 mg x1 for constipation. 04/10/2024 trial of sling LUE, continue current regimen, await disposition. (2) Pathological fracture, left humerus, sequela: Code(s): M84.422S - Pathological fracture, left humerus, sequela Status: Acute Assessment and Plan: This is the source of most of her current pain Left shoulder immobilizer ordered 04/09/2024 (3) SAV (acute kidney injury): Code(s): N17.9 - Acute kidney failure, unspecified Status: Acute Assessment and Plan: Clinically due to dehydration in part due to decreased oral intake due to uncontrolled pain 04/09/2024 1 L normal saline with 40 mEq potassium ordered IV a mL per hour (4) Hypokalemia: Code(s): E87.6 - Hypokalemia Status: Acute (5) Hyponatremia: Code(s): E87.1 - Hypo-osmolality and hyponatremia Status: Acute (6) 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 Did not like to wear immobilizer but will try sling. Taking liquids but very little solid nutrition. Review of Systems Review of Systems: ROS unobtainable: Yes unobtainable due to medical condition Exam Narrative: HEENT: PERRL, sclerae nonicteric, pharyngeal mucosa pink and intact NECK: No JVD, adenopathy, or thyromegaly CHEST: Clear to auscultation. Normal effort. HEART: NL S1/S2, regular, no murmur ABDOMEN: BS+, soft, nontender, no mass, no bruits EXTREMITIES: No cyanosis, edema, or clubbing NEUROLOGIC: CN intact and symmetric to inspection. MUSCULOSKELETAL: Tone and strength symmetric. PSYCH: Alert. Oriented to person only. Objective Data Vital Signs Vital Signs: Vital Signs - 24 hr 04/10/24 08:00 04/10/24 08:00 04/10/24 20:49 Temperature 97.6 F 97.6 F Pulse Rate 102 H 105 H Respiratory Rate 18 18 Blood Pressure 113/50 L 138/70 Pulse Oximetry 95 96 92 Oxygen Delivery Nasal Cannula Oxygen Flow Rate 2 04/10/24 21:00 Temperature Pulse Rate Respiratory Rate Blood Pressure Pulse Oximetry 92 Oxygen Delivery Room Air Oxygen Flow Rate Intake/Output Intake/Output: Intake & Output 04/08/24 04/09/24 04/10/24 04/11/24 23:59 23:59 23:59 23:59 Intake Total 160 100 Output Total 550 1400 300 Balance -390 -1300 -300 Meds/Results Medications: Active Medications Generic Name Dose Route Start Last Admin Trade Name Freq PRN Reason Stop Dose Admin Acetaminophen 1,000 mg 04/09/24 17:00 04/10/24 17:18 Acetaminophen 500 Mg Tablet PO 1,000 mg TID MICHELLE Administration Bisacodyl 10 mg 04/09/24 03:05 Bisacodyl 10 Mg Suppository RECTAL DAILY PRN Constipation Lorazepam 1 mg 04/10/24 15:12 04/10/24 17:18 Lorazepam (*Crx) 1 Mg Tablet PO 1 mg Q6H PRN Administration Anxiety Morphine Sulfate 60 mg 04/10/24 21:00 04/10/24 21:06 Morphine Sulfate (*Crx) 60 Mg Tabcr PO 60 mg Q12HR MICHELLE Administration Morphine Sulfate 10 mg 04/10/24 16:52 04/10/24 17:16 Morphine Sulfate Oral Conc Clementine (*Crx) 10 Mg/0.5 Ml Syringe PO 10 mg Q4H PRN Admin
[2024-04-11 07:59] VITALS: O2SAT 94
[2024-04-11 08:00] VITALS: BP 127/66; PULSE 100; RESP 16; TEMP 36.2; O2SAT 94
[2024-04-11] MEDS: LORazepam (*CRX) 1 MG TABLET PO (08:13)
[2024-04-11] MEDS: MORPHINE SULFATE (*CRX) 60 MG TABCR PO ×2 (08:13→20:15)
[2024-04-11] MEDS: ACETAMINOPHEN 500 MG TABLET 1000 MG PO ×2 (08:13→16:34)
[2024-04-11 20:00] VITALS: O2SAT 96
[2024-04-11] MEDS: SENNOSIDES 8.6 MG TABLET 17.2 MG PO (20:15)
[2024-04-11 21:23] VITALS: BP 125/76; PULSE 109; RESP 18; TEMP 36.6; O2SAT 96
[2024-04-11] MEDS: MORPHINE SULFATE ORAL CONC SOL (*CRX) 10 MG/0.5 ML SYRINGE PO (22:34)
[2024-04-12] MEDS: MORPHINE SULFATE ORAL CONC SOL (*CRX) 10 MG/0.5 ML SYRINGE PO (02:48)
[2024-04-12 07:59] VITALS: BP 150/61; PULSE 112; RESP 16; TEMP 36.6; O2SAT 95
[2024-04-12] MEDS: ACETAMINOPHEN 500 MG TABLET 1000 MG PO (08:43)
[2024-04-12] MEDS: MORPHINE SULFATE (*CRX) 60 MG TABCR PO (08:44)
--- NOTE | 2024-04-12 09:13 | P.DS_ITS ---
DS: Admitting Diagnosis Discharge Date 04/12/2024 Admitting Diagnosis uncontrolled pain due to carcinoma of unknown primary DS: Discharge Diagnosis Discharge Diagnosis (1) Palliative care encounter: Code(s): Z51.5 - Encounter for palliative care Status: Acute Assessment and Plan: * Meet inpatient hospice criteria due to required continuous IV morphine for annual * 04/09/2024 transition to p.o. regimen in anticipation of discharge to long- term care facility soon * 04/10/2024 increase MS CONTIN to 60 mg q 12 hr and Roxanol to 10 mg q 2 h prn, add senna 17.2 mg daily and methylnaltrexone 12.5 mg x1 for constipation. * 04/10/2024 trial of sling LUE, continue current regimen, await disposition. * 04/12/2024 pain adequately controlled, prefers no sling (2) Pathological fracture, left humerus, sequela: Code(s): M84.422S - Pathological fracture, left humerus, sequela Status: Acute Assessment and Plan: * This is the source of most of her current pain * Left shoulder immobilizer ordered 04/09/2024 (3) SAV (acute kidney injury): Code(s): N17.9 - Acute kidney failure, unspecified Status: Acute Assessment and Plan: * Clinically due to dehydration in part due to decreased oral intake due to uncontrolled pain * 04/09/2024 1 L normal saline with 40 mEq potassium ordered IV a mL per hour (4) Hypokalemia: Code(s): E87.6 - Hypokalemia Status: Acute (5) Hyponatremia: Code(s): E87.1 - Hypo-osmolality and hyponatremia Status: Acute (6) 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 Medications titrated to comfort with IV regimen. Transitioned to PO regimen and, after further adjustment, pain was adequately controlled for discharge to LTC in [place], [place]. Her PO intake remained poor. Time Spent with Patient Time attestation: Total time spent providing and/or coordinating discharge services: Exam Narrative: HEENT: PERRL, sclerae nonicteric, pharyngeal mucosa pink and intact NECK: No JVD, adenopathy, or thyromegaly CHEST: Clear to auscultation. Normal effort. HEART: NL S1/S2, regular, no murmur ABDOMEN: BS+, soft, nontender, no mass, no bruits EXTREMITIES: No cyanosis, edema, or clubbing NEUROLOGIC: CN intact and symmetric to inspection. MUSCULOSKELETAL: Tone and strength symmetric. PSYCH: Alert. Oriented to person only. Discharge Plan Discharge Attending physician on discharge: Arya Rojo Discharging Clinician: Arya Rojo Patient Disposition: Hospice - Medical Facility [facility]
--- NOTE | 2024-04-12 09:13 | PM.DS ---
DS: Admitting Diagnosis Discharge Date 04/12/2024 Admitting Diagnosis uncontrolled pain due to carcinoma of unknown primary DS: Discharge Diagnosis Discharge Diagnosis (1) Palliative care encounter: Code(s): Z51.5 - Encounter for palliative care Status: Acute Assessment and Plan: Meet inpatient hospice criteria due to required continuous IV morphine for annual 04/09/2024 transition to p.o. regimen in anticipation of discharge to long-term care facility soon 04/10/2024 increase MS CONTIN to 60 mg q 12 hr and Roxanol to 10 mg q 2 h prn, add senna 17.2 mg daily and methylnaltrexone 12.5 mg x1 for constipation. 04/10/2024 trial of sling LUE, continue current regimen, await disposition. 04/12/2024 pain adequately controlled, prefers no sling (2) Pathological fracture, left humerus, sequela: Code(s): M84.422S - Pathological fracture, left humerus, sequela Status: Acute Assessment and Plan: This is the source of most of her current pain Left shoulder immobilizer ordered 04/09/2024 (3) SAV (acute kidney injury): Code(s): N17.9 - Acute kidney failure, unspecified Status: Acute Assessment and Plan: Clinically due to dehydration in part due to decreased oral intake due to uncontrolled pain 04/09/2024 1 L normal saline with 40 mEq potassium ordered IV a mL per hour (4) Hypokalemia: Code(s): E87.6 - Hypokalemia Status: Acute (5) Hyponatremia: Code(s): E87.1 - Hypo-osmolality and hyponatremia Status: Acute (6) 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 Medications titrated to comfort with IV regimen. Transitioned to PO regimen and, after further adjustment, pain was adequately controlled for discharge to LTC in [place], [place]. Her PO intake remained poor. Time Spent with Patient Time attestation: Total time spent providing and/or coordinating discharge services: Exam Narrative: HEENT: PERRL, sclerae nonicteric, pharyngeal mucosa pink and intact NECK: No JVD, adenopathy, or thyromegaly CHEST: Clear to auscultation. Normal effort. HEART: NL S1/S2, regular, no murmur ABDOMEN: BS+, soft, nontender, no mass, no bruits EXTREMITIES: No cyanosis, edema, or clubbing NEUROLOGIC: CN intact and symmetric to inspection. MUSCULOSKELETAL: Tone and strength symmetric. PSYCH: Alert. Oriented to person only. Discharge Plan Discharge Attending physician on discharge: Arya Rojo Discharging Clinician: Arya Rojo Patient Disposition: Hospice - Medical Facility Activity: other - see discharge instructions Diet: as tolerated Discharge Instructions: Wear sling on left upper extremity PRN. May be out of bed with assist. Stand Alone Forms: General Discharge Information, [facility] Discharge Discharge Medications: New lorazepam 1 mg Tablet 1 mg PO Q6H PRN (Reason: Anxiety) Qty: 10 0RF morphine 60 mg Tablet Extended Release 60 mg PO Q12HR Qty: 14 0RF morphine concentrate 100 mg/5 mL (20 mg/mL) solution 10 mg PO Q4H PRN (Reason: pain) Qty: 30 0RF acetaminophen 500 mg Tablet 1,000 mg PO TID Qty: 60 0RF sennosides [Senokot] 8.6 mg Tablet 17.2 mg PO HS Qty: 14 0RF bisacodyl 10 mg Suppository 10 mg RECTAL DAILY PRN (Reason: Constipation) Qty: 4 0RF prochlorperazine maleate 5 mg Tablet 10 mg PO Q6H PRN (Reason: Nausea And Vomiting) Qty: 10 0RF Discontinued albuterol sulfate 90 mcg/actuation HFA aerosol inhaler 1 p
[2024-04-12 10:21] LABS: SARS-CoV-2 RNA PCR Negative (Negative)
== END 2024-04-12 12:31 | disposition hospice, inpatient (51) | DRG 951 ==
PROVIDERS: Admitting Provider Internal Medicine; PCP Internal Medicine; Visit Provider Internal Medicine
DX: Z51.5 Encounter for palliative care (principal); C77.9 Secondary and unspecified malignant neoplasm of lymph node, unspecified; N17.9 Acute kidney failure, unspecified; E87.1 Hypo-osmolality and hyponatremia; M84.422S Pathological fracture, left humerus, sequela; C80.1 Malignant (primary) neoplasm, unspecified; E86.0 Dehydration; E87.6 Hypokalemia; D64.9 Anemia, unspecified; Z11.52 Encounter for screening for COVID-19
CPT/HCPCS: 87635; A9270; J2060; J2270